=== PATIENT | female | born 1990 | race Caucasian/White ===

== ENCOUNTER 2024-12-22 15:49 | Observation (INO) ==
--- NOTE | 2024-12-22 16:36 | XRay Report ---
Clinical History: Chest pain Technique: A frontal view of the chest was obtained Findings: There is a small right pneumothorax versus a prominent emphysematous bulla. The heart size is within normal limits. No pleural effusion or left pneumothorax is seen. There is diffuse interstitial prominence No fracture is noted. No foreign body is seen Impression: 1. Possible right pneumothorax, versus an emphysematous bulla. Chest CT could be obtained for further evaluation 2. Diffuse interstitial prominence that may be due to viral pneumonitis ACT 112: Positive. There are findings on this exam that require communication between the performing entity and the patient following Patient Test Result Information Act ([place] ACT 112) guidelines. Electronically signed by Lucien Ann 12-22-2024 4:35 PM
[2024-12-22 16:50] LABS: Hematocrit (blood only) 40.5 % (37.0-47.0); Hemoglobin 14.3 g/dl (12.0-16.0); Immature Granulocytes # (auto) 0.01 K/uL (0.01-0.20); Immature Granulocytes % (auto) 0.1 %; Mean Corpuscular Hemoglobin 29.5 pg (25.0-34.0); Mean Corpuscular Volume 83.7 fL (80.0-100.0); Platelet Count 242 K/uL (130-400); RDW Standard Deviation 39.2 fL (36.4-46.3); Red Blood Count 4.84 M/uL (4.20-5.40); White Blood Count 7.14 K/ul (4.8-10.8)
--- NOTE | 2024-12-22 17:08 | Emergency Department Note ---
Impression & Plan Pneumothorax, Emphysema, interstitial ED Provider Note NAME: DARNELL GRANADO AGE: 34 SEX: F : 1990 ARRIVES VIA: Walk-In INFORMANT: Patient, ED PROVIDER(S): Afua Moraes MD CHIEF COMPLAINT: Chest pain HPI: This is a 34-year-old female presenting for chest pain. Patient states that she has had chest pain starting around 1030. She is notices right-sided in the chest. Goes into the right shoulder blade. She has felt short of breath on this time. She took ibuprofen which relieved her symptoms. She noted that it had increased again later in the day. She reports never having symptoms like this before. No pleurisy with this. No arm pain. ROS: See above HPI for pertinent positives & negatives. A total of 10 systems reviewed and were otherwise negative. PAST MEDICAL HISTORY: See Below PAST SURGICAL HISTORY: See Below FAMILY HISTORY: See Below SOCIAL HISTORY: See Below HOME MEDICATIONS: See Below ALLERGIES: See Below VITALS: See Below PHYSICAL EXAMINATION: General: resting comfortably in no acute distress Head: Normocephalic and atraumatic Eyes: Normal inspection, extraocular muscles intact Ear, nose, throat: Normal external exam Neck: Normal range of motion Respiratory: lungs clear to auscultation bilaterally Cardiovascular: Regular rate/rhythm, no murmur GI: soft, nontender, no guarding or rebound Extremities: nontender, moves all extremities Neuro: The patient awake and alert, appropriately conversive, no focal deficits, symmetric faces Skin: Warm, dry, and intact MEDICAL DECISION MAKING: This is a 34-year-old female sen presenting for chest pain. Will get screening workup that includes chest x-ray, basic blood work, troponin, EKG - ECG independently interpreted by me with normal sinus rhythm, rate of 98, normal axis, normal [place], normal QRS, normal QTc, no ST segment elevations consistent with STEMI criteria - Bloodwork is reviewed showing no significant leukocytosis, anemia, electrolyte or creatinine abnormality.negative troponin - Chest x-ray read by radiology as possible right pneumothorax versus emphysematous bullae - CT chest ordered to help elucidate. This reveals a moderate right pneumothorax with severe emphysema/interstitial lung disease -Discussed with Dr. West, recommend small bore chest tube such as pigtail -Patient consented for pigtail catheter placement of the right. Patient made aware of risks and benefits - Patient given Ativan for anxiety, ketamine for pain control 0.3 mg/kg(total 30 mg), and 100 mg of fentanyl throughout procedure - Pigtail chest tube procedure note Indication: Pneumothorax PROCEDURE SUMMARY: A time out was performed and after the chest x-ray was reviewed, the appropriate side was confirmed and marked. My hands were washed immediately prior to the procedure. I wore a surgical cap, mask with protective eyewear, sterile gown and sterile gloves throughout the procedure. The patient was prepped and draped in a sterile manner using chlorhexidine scrub after the patient was positioned in the usual fashion. A total of 4 ml of 1% lidocaine was used to anesthesize the skin, subcutaneous tissue, superior aspect of the rib periosteum and parietal pleura. Needle was inserted with return of air upon entering chest cavity. Guidewire inserted chest cavity. Patient states slight neck apply to skin. Dilator then used to dilate tract. Pigtail catheter with stylette placed. Stylette removed. Pigtail sutured in place and tape applied. Patient tolerated procedure well. Minimal blood loss. Postprocedure chest x- ray reveals improved pneumothorax Differential diagnosis: ACS, PE, pneumothorax, pneumonia Independent History obtained from: Diagnostics interpreted by me: ECG: See above Cardiac Monitoring: An order was placed for continuous cardiac monitoring. The monitor shows a rate of 95 with sinus rhythm. Critical Care Note: I have personally spent 35 minutes of critical care time in the direct management of this patient. This includes bedside care, interpretation of diagnostic studies, and testing, discussion with consultants, patient, and family members, and other required patient management activities. This 35 minutes is in excess of all separately billable procedures. Past Med/Surg History Problem List (Updated 12/23/24 @ 00:03 by Afua Moraes MD) Emphysema, interstitial (Acute) Pneumothorax (Acute) Depression Anxiety (Acute) Chest pain (Acute) Dental caries (Acute) Diffuse abdominal pain (Acute) Knee pain (Acute) Left flank pain (Acute) Lumbar strain (Acute) Renal colic (Acute) Right knee injury (Acute) Vomiting (Acute) Social History Smoking Status: Current every day smoker Tobacco Type: Cigarettes Cigarettes Per Day: 20; Second Hand Exposure: No; Do You Dip or Chew Tobacco: No; Tobacco Cessation Education Requested by Patient: No Hx Alcohol Use: No Hx Substance Use: Yes Last Used Substance: Unknown Preferred Language: Uzbek Communication Ability: Effective Box Repairer Required: No Beliefs That Will Affect Care: None Current Living Situation: Family Current Living Situation Comment: lives at home with daughter and Other Information That Helps Us Care for You: No Feels Safe at Home: Yes Safety Concerns: Feels Safe At This Time Assistive Devices: None Allergies Allergies Allergy/AdvReac Type Severity Reaction Status Date / Time No Known Allergies Allergy Unverified 10/05/15 12:41 Home Meds Home Medications Medication Instructions Recorded Confirmed buprenorphine 8 mg-naloxone 2 mg 1 tab sublingual BID 12/22/24 12/22/24 sublingual tablet ibuprofen 0 mg PO UD PRN Pain 12/22/24 12/22/24 naloxone 4 mg/actuation nasal spray 1 spray intranasal UD PRN Other 12/22/24 12/22/24 Results & Data (ED) Vital Signs Vital Signs - 24 hr 12/22/24 15:54 12/22/24 16:01 12/22/24 16:44 Temperature 36.7 C Temperature Source Temporal Artery Scan Pulse Rate 93 H 89 Pulse Rate [Finger] Pulse Rate from SpO2 Sensor Pulse Rhythm [Finger] Pulse Strength [Finger] Respiratory Rate 16 Respiratory Effort / Characteristics Non-Labored Spontaneous Respiratory Depth Normal Respiratory Pattern Blood Pressure 162/94 H Blood Pressure [Right Arm] Blood Pressure Mean 116 Blood Pressure Mean [Right Arm] Blood Pressure Position [Right Arm] Pulse Oximetry 96 98 Oxygen Delivery Method Room Air Room Air Oxygen Flow Rate Sepsis Recent Fever Within 48 Hours No Sepsis New/Unexplained Change in Mental Status No Sepsis Action Taken by Nursing No Action Required 12/22/24 17:00 12/22/24 17:30 12/22/24 18:00 Temperature Temperature Source Pulse Rate 92 H 82 92 H Pulse Rate [Finger] Pulse Rate from SpO2 Sensor 92 H 80 93 H Pulse Rhythm [Finger] Pulse Strength [Finger] Respiratory Rate 18 16 15 Respiratory Effort / Characteristics Respiratory Depth Respiratory Pattern Blood Pressure 113/68 109/76 118/75 Blood Pressure [Right Arm] Blood Pressure Mean 89 96 87 Blood Pressure Mean [Right Arm] Blood Pressure Position [Right Arm] Pulse Oximetry 96 96 95 Oxygen Delivery Method Room Air Room Air Room Air Oxygen Flow Rate Sepsis Recent Fever Within 48 Hours Sepsis New/Unexplained Change in Mental Status Sepsis Action Taken by Nursing 12/22/24 18:51 12/22/24 18:51 12/22/24 18:51 Temperature Temperature Source Pulse Rate Pulse Rate [Finger] Pulse Rate from SpO2 Sensor Pulse Rhythm [Finger] Pulse Strength [Finger] Respiratory Rate Respiratory Effort / Characteristics Respiratory Depth Respiratory Pattern Blood Pressure 154/101 H 154/101 H 154/101 H Blood Pressure [Right Arm] Blood Pressure Mean 107 107 107 Blood Pressure Mean [Right Arm] Blood Pressure Position [Right Arm] Pulse Oximetry Oxygen Delivery Method Oxygen Flow Rate Sepsis Recent Fever Within 48 Hours Sepsis New/Unexplained Change in Mental Status Sepsis Action Taken by Nursing 12/22/24 18:51 12/22/24 18:51 12/22/24 19:00 Temperature Temperature Source Pulse Rate 108 H 101 H Pulse Rate [Finger] Pulse Rate from SpO2 Sensor 108 H 101 H Pulse Rhythm [Finger] Pulse Strength [Finger] Respiratory Rate 21 19 Respiratory Effort / Characteristics Respiratory Depth Respiratory Pattern Blood Pressure 154/101 H Blood Pressure [Right Arm] Blood Pressure Mean 107 Blood Pressure Mean [Right Arm] Blood Pressure Position [Right Arm] Pulse Oximetry 97 99 Oxygen Delivery Method Oxygen Flow Rate Sepsis Recent Fever Within 48 Hours Sepsis New/Unexplained Change in Mental Status Sepsis Action Taken by Nursing 12/22/24 19:00 12/22/24 19:00 12/22/24 19:00 Temperature Temperature Source Pulse Rate Pulse Rate [Finger] Pulse Rate from SpO2 Sensor Pulse Rhythm [Finger] Pulse Strength [Finger] Respiratory Rate Respiratory Effort / Characteristics Respiratory Depth Respiratory Pattern Blood Pressure 139/89 139/89 139/89 Blood Pressure [Right Arm] Blood Pressure Mean 101 101 101 Blood Pressure Mean [Right Arm] Blood Pressure Position [Right Arm] Pulse Oximetry Oxygen Delivery Method Oxygen Flow Rate Sepsis Recent Fever Within 48 Hours Sepsis New/Unexplained Change in Mental Status Sepsis Action Taken by Nursing 12/22/24 19:00 12/22/24 19:00 12/22/24 19:12 Temperature Temperature Source Pulse Rate Pulse Rate [Finger] 113 H Pulse Rate from SpO2 Sensor Pulse Rhythm [Finger] Pulse Strength [Finger] Respiratory Rate 26 H Respiratory Effort / Characteristics Respiratory Depth Respiratory Pattern Blood Pressure 139/89 139/89 Blood Pressure [Right Arm] 161/99 H Blood Pressure Mean 101 101 Blood Pressure Mean [Right Arm] 119 Blood Pressure Position [Right Arm] Pulse Oximetry 92 Oxygen Delivery Method Room Air Oxygen Flow Rate Sepsis Recent Fever Within 48 Hours Sepsis New/Unexplained Change in Mental Status Sepsis Action Taken by Nursing 12/22/24 19:12 12/22/24 19:12 12/22/24 19:12 Temperature Temperature Source Pulse Rate Pulse Rate [Finger] Pulse Rate from SpO2 Sensor Pulse Rhythm [Finger] Pulse Strength [Finger] Respiratory Rate Respiratory Effort / Characteristics Respiratory Depth Respiratory Pattern Blood Pressure 161/99 H 161/99 H 161/99 H Blood Pressure [Right Arm] Blood Pressure Mean 118 118 118 Blood Pressure Mean [Right Arm] Blood Pressure Position [Right Arm] Pulse Oximetry Oxygen Delivery Method Oxygen Flow Rate Sepsis Recent Fever Within 48 Hours Sepsis New/Unexplained Change in Mental Status Sepsis Action Taken by Nursing 12/22/24 19:12 12/22/24 19:12 12/22/24 19:12 Temperature Temperature Source Pulse Rate 106 H Pulse Rate [Finger] Pulse Rate from SpO2 Sensor 105 H Pulse Rhythm [Finger] Pulse Strength [Finger] Respiratory Rate 17 Respiratory Effort / Characteristics Respiratory Depth Respiratory Pattern Blood Pressure 161/99 H 161/99 H Blood Pressure [Right Arm] Blood Pressure Mean 118 118 Blood Pressure Mean [Right Arm] Blood Pressure Position [Right Arm] Pulse Oximetry 96 Oxygen Delivery Method Oxygen Flow Rate Sepsis Recent Fever Within 48 Hours Sepsis New/Unexplained Change in Mental Status Sepsis Action Taken by Nursing 12/22/24 19:21 12/22/24 19:30 12/22/24 19:30 Temperature Temperature Source Pulse Rate 97 H Pulse Rate [Finger] Pulse Rate from SpO2 Sensor 98 H Pulse Rhythm [Finger] Pulse Strength [Finger] Respiratory Rate 17 Respiratory Effort / Characteristics Respiratory Depth Respiratory Pattern Blood Pressure 148/118 H 148/118 H Blood Pressure [Right Arm] Blood Pressure Mean 133 133 Blood Pressure Mean [Right Arm] Blood Pressure Position [Right Arm] Pulse Oximetry 98 Oxygen Delivery Method Oxygen Flow Rate Sepsis Recent Fever Within 48 Hours Sepsis New/Unexplained Change in Mental Status Sepsis Action Taken by Nursing 12/22/24 19:30 12/22/24 19:30 12/22/24 19:30 Temperature Temperature Source Pulse Rate Pulse Rate [Finger] Pulse Rate from SpO2 Sensor Pulse Rhythm [Finger] Pulse Strength [Finger] Respiratory Rate Respiratory Effort / Characteristics Respiratory Depth Respiratory Pattern Blood Pressure 148/118 H 148/118 H 148/118 H Blood Pressure [Right Arm] Blood Pressure Mean 133 133 133 Blood Pressure Mean [Right Arm] Blood Pressure Position [Right Arm] Pulse Oximetry Oxygen Delivery Method Oxygen Flow Rate Sepsis Recent Fever Within 48 Hours Sepsis New/Unexplained Change in Mental Status Sepsis Action Taken by Nursing 12/22/24 19:30 12/22/24 19:42 12/22/24 19:45 Temperature Temperature Source Pulse Rate 104 H 120 H Pulse Rate [Finger] Pulse Rate from SpO2 Sensor Pulse Rhythm [Finger] Pulse Strength [Finger] Respiratory Rate Respiratory Effort / Characteristics Respiratory Depth Respiratory Pattern Blood Pressure 172/139 H Blood Pressure [Right Arm] Blood Pressure Mean 159 Blood Pressure Mean [Right Arm] Blood Pressure Position [Right Arm] Pulse Oximetry Oxygen Delivery Method Oxygen Flow Rate Sepsis Recent Fever Within 48 Hours Sepsis New/Unexplained Change in Mental Status Sepsis Action Taken by Nursing 12/22/24 19:45 12/22/24 19:45 12/22/24 19:45 Temperature Temperature Source Pulse Rate Pulse Rate [Finger] Pulse Rate from SpO2 Sensor Pulse Rhythm [Finger] Pulse Strength [Finger] Respiratory Rate Respiratory Effort / Characteristics Respiratory Depth Respiratory Pattern Blood Pressure 172/139 H 172/139 H 172/139 H Blood Pressure [Right Arm] Blood Pressure Mean 159 159 159 Blood Pressure Mean [Right Arm] Blood Pressure Position [Right Arm] Pulse Oximetry Oxygen Delivery Method Oxygen Flow Rate Sepsis Recent Fever Within 48 Hours Sepsis New/Unexplained Change in Mental Status Sepsis Action Taken by Nursing 12/22/24 19:45 12/22/24 19:45 12/22/24 19:51 Temperature Temperature Source Pulse Rate 125 H 99 H Pulse Rate [Finger] Pulse Rate from SpO2 Sensor 100 H Pulse Rhythm [Finger] Pulse Strength [Finger] Respiratory Rate Respiratory Effort / Characteristics Respiratory Depth Respiratory Pattern Blood Pressure 172/139 H Blood Pressure [Right Arm] Blood Pressure Mean 159 Blood Pressure Mean [Right Arm] Blood Pressure Position [Right Arm] Pulse Oximetry 100 Oxygen Delivery Method Oxygen Flow Rate Sepsis Recent Fever Within 48 Hours Sepsis New/Unexplained Change in Mental Status Sepsis Action Taken by Nursing 12/22/24 20:00 12/22/24 20:00 12/22/24 20:00 Temperature Temperature Source Pulse Rate 98 H Pulse Rate [Finger] 103 H Pulse Rate from SpO2 Sensor 100 H Pulse Rhythm [Finger] Pulse Strength [Finger] Respiratory Rate 20 Respiratory Effort / Characteristics Non-Labored Spontaneous Respiratory Depth Normal Respiratory Pattern Regular Blood Pressure 157/91 H Blood Pressure [Right Arm] 157/91 H Blood Pressure Mean 104 Blood Pressure Mean [Right Arm] 113 Blood Pressure Position [Right Arm] Pulse Oximetry 100 100 Oxygen Delivery Method Non-rebreather Oxygen Flow Rate 15 Sepsis Recent Fever Within 48 Hours Sepsis New/Unexplained Change in Mental Status Sepsis Action Taken by Nursing 12/22/24 20:00 12/22/24 20:00 12/22/24 20:00 Temperature Temperature Source Pulse Rate Pulse Rate [Finger] Pulse Rate from SpO2 Sensor Pulse Rhythm [Finger] Pulse Strength [Finger] Respiratory Rate 18 Respiratory Effort / Characteristics Respiratory Depth Respiratory Pattern Blood Pressure 157/91 H 157/91 H 157/91 H Blood Pressure [Right Arm] Blood Pressure Mean 104 104 104 Blood Pressure Mean [Right Arm] Blood Pressure Position [Right Arm] Pulse Oximetry Oxygen Delivery Method Oxygen Flow Rate Sepsis Recent Fever Within 48 Hours Sepsis New/Unexplained Change in Mental Status Sepsis Action Taken by Nursing 12/22/24 20:00 12/22/24 20:12 12/22/24 20:15 Temperature Temperature Source Pulse Rate 107 H Pulse Rate [Finger] Pulse Rate from SpO2 Sensor 105 H Pulse Rhythm [Finger] Pulse Strength [Finger] Respiratory Rate Respiratory Effort / Characteristics Respiratory Depth Respiratory Pattern Blood Pressure 157/91 H 144/96 H Blood Pressure [Right Arm] Blood Pressure Mean 104 110 Blood Pressure Mean [Right Arm] Blood Pressure Position [Right Arm] Pulse Oximetry 100 Oxygen Delivery Method Oxygen Flow Rate Sepsis Recent Fever Within 48 Hours Sepsis New/Unexplained Change in Mental Status Sepsis Action Taken by Nursing 12/22/24 20:15 12/22/24 20:15 12/22/24 20:15 Temperature Temperature Source Pulse Rate Pulse Rate [Finger] Pulse Rate from SpO2 Sensor Pulse Rhythm [Finger] Pulse Strength [Finger] Respiratory Rate Respiratory Effort / Characteristics Respiratory Depth Respiratory Pattern Blood Pressure 144/96 H 144/96 H 144/96 H Blood Pressure [Right Arm] Blood Pressure Mean 110 110 110 Blood Pressure Mean [Right Arm] Blood Pressure Position [Right Arm] Pulse Oximetry Oxygen Delivery Method Oxygen Flow Rate Sepsis Recent Fever Within 48 Hours Sepsis New/Unexplained Change in Mental Status Sepsis Action Taken by Nursing 12/22/24 20:15 12/22/24 20:15 12/22/24 20:21 Temperature Temperature Source Pulse Rate 100 H 115 H Pulse Rate [Finger] Pulse Rate from SpO2 Sensor 99 H 112 H Pulse Rhythm [Finger] Pulse Strength [Finger] Respiratory Rate Respiratory Effort / Characteristics Respiratory Depth Respiratory Pattern Blood Pressure 144/96 H Blood Pressure [Right Arm] Blood Pressure Mean 110 Blood Pressure Mean [Right Arm] Blood Pressure Position [Right Arm] Pulse Oximetry 100 100 Oxygen Delivery Method Non-rebreather Oxygen Flow Rate 15 Sepsis Recent Fever Within 48 Hours Sepsis New/Unexplained Change in Mental Status Sepsis Action Taken by Nursing 12/22/24 20:30 12/22/24 20:30 12/22/24 20:30 Temperature Temperature Source Pulse Rate Pulse Rate [Finger] Pulse Rate from SpO2 Sensor Pulse Rhythm [Finger] Pulse Strength [Finger] Respiratory Rate Respiratory Effort / Characteristics Respiratory Depth Respiratory Pattern Blood Pressure 174/103 H 174/103 H 174/103 H Blood Pressure [Right Arm] Blood Pressure Mean 120 120 120 Blood Pressure Mean [Right Arm] Blood Pressure Position [Right Arm] Pulse Oximetry Oxygen Delivery Method Oxygen Flow Rate Sepsis Recent Fever Within 48 Hours Sepsis New/Unexplained Change in Mental Status Sepsis Action Taken by Nursing 12/22/24 20:30 12/22/24 20:30 12/22/24 20:30 Temperature Temperature Source Pulse Rate 117 H Pulse Rate [Finger] Pulse Rate from SpO2 Sensor 119 H Pulse Rhythm [Finger] Pulse Strength [Finger] Respiratory Rate Respiratory Effort / Characteristics Respiratory Depth Respiratory Pattern Blood Pressure 174/103 H 174/103 H Blood Pressure [Right Arm] Blood Pressure Mean 120 120 Blood Pressure Mean [Right Arm] Blood Pressure Position [Right Arm] Pulse Oximetry 100 Oxygen Delivery Method Oxygen Flow Rate Sepsis Recent Fever Within 48 Hours Sepsis New/Unexplained Change in Mental Status Sepsis Action Taken by Nursing 12/22/24 20:30 12/22/24 20:30 12/22/24 20:42 Temperature Temperature Source Pulse Rate 108 H Pulse Rate [Finger] Pulse Rate from SpO2 Sensor 109 H Pulse Rhythm [Finger] Pulse Strength [Finger] Respiratory Rate Respiratory Effort / Characteristics Respiratory Depth Respiratory Pattern Blood Pressure 174/103 H 174/103 H Blood Pressure [Right Arm] Blood Pressure Mean 120 120 Blood Pressure Mean [Right Arm] Blood Pressure Position [Right Arm] Pulse Oximetry 100 Oxygen Delivery Method Oxygen Flow Rate Sepsis Recent Fever Within 48 Hours Sepsis New/Unexplained Change in Mental Status Sepsis Action Taken by Nursing 12/22/24 20:45 12/22/24 20:45 12/22/24 20:45 Temperature Temperature Source Pulse Rate Pulse Rate [Finger] Pulse Rate from SpO2 Sensor Pulse Rhythm [Finger] Pulse Strength [Finger] Respiratory Rate Respiratory Effort / Characteristics Respiratory Depth Respiratory Pattern Blood Pressure 159/94 H 159/94 H 159/94 H Blood Pressure [Right Arm] Blood Pressure Mean 122 122 122 Blood Pressure Mean [Right Arm] Blood Pressure Position [Right Arm] Pulse Oximetry Oxygen Delivery Method Oxygen Flow Rate Sepsis Recent Fever Within 48 Hours Sepsis New/Unexplained Change in Mental Status Sepsis Action Taken by Nursing 12/22/24 20:45 12/22/24 20:45 12/22/24 20:45 Temperature Temperature Source Pulse Rate 108 H Pulse Rate [Finger] Pulse Rate from SpO2 Sensor 106 H Pulse Rhythm [Finger] Pulse Strength [Finger] Respiratory Rate Respiratory Effort / Characteristics Respiratory Depth Respiratory Pattern Blood Pressure 159/94 H 159/94 H Blood Pressure [Right Arm] Blood Pressure Mean 122 122 Blood Pressure Mean [Right Arm] Blood Pressure Position [Right Arm] Pulse Oximetry 100 Oxygen Delivery Method Oxygen Flow Rate Sepsis Recent Fever Within 48 Hours Sepsis New/Unexplained Change in Mental Status Sepsis Action Taken by Nursing 12/22/24 20:51 12/22/24 21:00 12/22/24 21:00 Temperature Temperature Source Pulse Rate 102 H Pulse Rate [Finger] Pulse Rate from SpO2 Sensor 103 H Pulse Rhythm [Finger] Pulse Strength [Finger] Respiratory Rate Respiratory Effort / Characteristics Respiratory Depth Respiratory Pattern Blood Pressure 160/98 H 160/98 H Blood Pressure [Right Arm] Blood Pressure Mean 119 119 Blood Pressure Mean [Right Arm] Blood Pressure Position [Right Arm] Pulse Oximetry 100 Oxygen Delivery Method Oxygen Flow Rate Sepsis Recent Fever Within 48 Hours Sepsis New/Unexplained Change in Mental Status Sepsis Action Taken by Nursing 12/22/24 21:00 12/22/24 21:00 12/22/24 21:00 Temperature Temperature Source Pulse Rate 110 H Pulse Rate [Finger] Pulse Rate from SpO2 Sensor 110 H Pulse Rhythm [Finger] Pulse Strength [Finger] Respiratory Rate 18 Respiratory Effort / Characteristics Respiratory Depth Respiratory Pattern Blood Pressure 160/98 H 160/98 H Blood Pressure [Right Arm] Blood Pressure Mean 119 119 Blood Pressure Mean [Right Arm] Blood Pressure Position [Right Arm] Pulse Oximetry 95 Oxygen Delivery Method Oxygen Flow Rate Sepsis Recent Fever Within 48 Hours Sepsis New/Unexplained Change in Mental Status Sepsis Action Taken by Nursing 12/22/24 21:00 12/22/24 21:00 12/22/24 21:00 Temperature Temperature Source Pulse Rate Pulse Rate [Finger] Pulse Rate from SpO2 Sensor Pulse Rhythm [Finger] Pulse Strength [Finger] Respiratory Rate Respiratory Effort / Characteristics Respiratory Depth Respiratory Pattern Blood Pressure 160/98 H 160/98 H 160/98 H Blood Pressure [Right Arm] Blood Pressure Mean 119 119 119 Blood Pressure Mean [Right Arm] Blood Pressure Position [Right Arm] Pulse Oximetry Oxygen Delivery Method Oxygen Flow Rate Sepsis Recent Fever Within 48 Hours Sepsis New/Unexplained Change in Mental Status Sepsis Action Taken by Nursing 12/22/24 21:05 12/22/24 21:12 12/22/24 21:15 Temperature Temperature Source Pulse Rate 103 H Pulse Rate [Finger] 105 H Pulse Rate from SpO2 Sensor 104 H Pulse Rhythm [Finger] Regular Pulse Strength [Finger] Normal Respiratory Rate 17 Respiratory Effort / Characteristics Non-Labored Spontaneous Respiratory Depth Normal Respiratory Pattern Regular Blood Pressure 119/77 Blood Pressure [Right Arm] 160/98 H Blood Pressure Mean 89 Blood Pressure Mean [Right Arm] 118 Blood Pressure Position [Right Arm] Lying Pulse Oximetry 96 94 Oxygen Delivery Method Nasal Cannula Oxygen Flow Rate 3 Sepsis Recent Fever Within 48 Hours Sepsis New/Unexplained Change in Mental Status Sepsis Action Taken by Nursing 12/22/24 21:15 12/22/24 21:15 12/22/24 21:15 Temperature Temperature Source Pulse Rate Pulse Rate [Finger] Pulse Rate from SpO2 Sensor Pulse Rhythm [Finger] Pulse Strength [Finger] Respiratory Rate Respiratory Effort / Characteristics Respiratory Depth Respiratory Pattern Blood Pressure 119/77 119/77 119/77 Blood Pressure [Right Arm] Blood Pressure Mean 89 89 89 Blood Pressure Mean [Right Arm] Blood Pressure Position [Right Arm] Pulse Oximetry Oxygen Delivery Method Oxygen Flow Rate Sepsis Recent Fever Within 48 Hours Sepsis New/Unexplained Change in Mental Status Sepsis Action Taken by Nursing 12/22/24 21:15 12/22/24 21:15 12/22/24 21:21 Temperature Temperature Source Pulse Rate 102 H 104 H Pulse Rate [Finger] Pulse Rate from SpO2 Sensor 104 H 105 H Pulse Rhythm [Finger] Pulse Strength [Finger] Respiratory Rate Respiratory Effort / Characteristics Respiratory Depth Respiratory Pattern Blood Pressure 119/77 Blood Pressure [Right Arm] Blood Pressure Mean 89 Blood Pressure Mean [Right Arm] Blood Pressure Position [Right Arm] Pulse Oximetry 94 94 Oxygen Delivery Method Oxygen Flow Rate Sepsis Recent Fever Within 48 Hours Sepsis New/Unexplained Change in Mental Status Sepsis Action Taken by Nursing 12/22/24 21:27 12/22/24 21:28 12/22/24 21:28 Temperature Temperature Source Pulse Rate 94 H Pulse Rate [Finger] Pulse Rate from SpO2 Sensor 96 H Pulse Rhythm [Finger] Pulse Strength [Finger] Respiratory Rate 16 Respiratory Effort / Characteristics Respiratory Depth Respiratory Pattern Blood Pressure 131/84 131/84 Blood Pressure [Right Arm] Blood Pressure Mean 101 101 Blood Pressure Mean [Right Arm] Blood Pressure Position [Right Arm] Pulse Oximetry 95 Oxygen Delivery Method Oxygen Flow Rate Sepsis Recent Fever Within 48 Hours Sepsis New/Unexplained Change in Mental Status Sepsis Action Taken by Nursing 12/22/24 21:30 12/22/24 21:30 12/22/24 21:30 Temperature Temperature Source Pulse Rate Pulse Rate [Finger] Pulse Rate from SpO2 Sensor Pulse Rhythm [Finger] Pulse Strength [Finger] Respiratory Rate Respiratory Effort / Characteristics Respiratory Depth Respiratory Pattern Blood Pressure 147/82 H 147/82 H 147/82 H Blood Pressure [Right Arm] Blood Pressure Mean 97 97 97 Blood Pressure Mean [Right Arm] Blood Pressure Position [Right Arm] Pulse Oximetry Oxygen Delivery Method Oxygen Flow Rate Sepsis Recent Fever Within 48 Hours Sepsis New/Unexplained Change in Mental Status Sepsis Action Taken by Nursing 12/22/24 21:30 12/22/24 21:30 12/22/24 21:30 Temperature Temperature Source Pulse Rate 103 H Pulse Rate [Finger] Pulse Rate from SpO2 Sensor 103 H Pulse Rhythm [Finger] Pulse Strength [Finger] Respiratory Rate 17 Respiratory Effort / Characteristics Respiratory Depth Respiratory Pattern Blood Pressure 147/82 H 147/82 H Blood Pressure [Right Arm] Blood Pressure Mean 97 97 Blood Pressure Mean [Right Arm] Blood Pressure Position [Right Arm] Pulse Oximetry 94 Oxygen Delivery Method Oxygen Flow Rate Sepsis Recent Fever Within 48 Hours Sepsis New/Unexplained Change in Mental Status Sepsis Action Taken by Nursing 12/22/24 21:42 Temperature Temperature Source Pulse Rate 99 H Pulse Rate [Finger] Pulse Rate from SpO2 Sensor 99 H Pulse Rhythm [Finger] Pulse Strength [Finger] Respiratory Rate 15 Respiratory Effort / Characteristics Respiratory Depth Respiratory Pattern Blood Pressure Blood Pressure [Right Arm] Blood Pressure Mean Blood Pressure Mean [Right Arm] Blood Pressure Position [Right Arm] Pulse Oximetry 94 Oxygen Delivery Method Oxygen Flow Rate Sepsis Recent Fever Within 48 Hours Sepsis New/Unexplained Change in Mental Status Sepsis Action Taken by Nursing Laboratory Data 12/22/24 16:16 12/22/24 16:16 Lab Results 12/22/24 Range/Units 16:16 WBC 7.14 (4.8-10.8) K/ul RBC 4.84 (4.20-5.40) M/uL Hgb 14.3 (12.0-16.0) g/dl Hct 40.5 (37.0-47.0) % MCV 83.7 (80.0-100.0) fL MCH 29.5 (25.0-34.0) pg MCHC 35.3 (32.0-36.0) g/dL RDW Std Deviation 39.2 (36.4-46.3) fL RDW Coeff of Angela 13.0 (11.5-14.5) % Plt Count 242 (130-400) K/uL MPV 10.4 (9.4-12.4) fL Immature Gran % (Auto) 0.1 % Neut % (Auto) 61.4 % Lymph % (Auto) 28.7 % [place] % (Auto) 7.1 % Eos % (Auto) 2.0 % Baso % (Auto) 0.7 % Neut # (Auto) 4.38 (1.40-6.50) K/uL Lymph # (Auto) 2.05 (1.20-3.40) K/uL [place] # (Auto) 0.51 (0.11-0.59) K/uL Eos # (Auto) 0.14 (0.00-0.50) K/uL Baso # (Auto) 0.05 (0.00-0.20) K/uL Immature Gran # (Auto) 0.01 (0.01-0.20) K/uL Sodium 136 (136-145) mmol/L Potassium 3.5 (3.5-5.1) mmol/L Chloride 105 (98-107) mmol/L Carbon Dioxide 23 (21-32) mmol/L Anion Gap 8 (3-11) BUN 10 (6-23) mg/dl Creatinine 0.59 L (0.6-1.2) mg/dl Est Cr Clr Drug Dosing 166.7 ml/min eGFR 120.46 BUN/Creatinine Ratio 16.9 (10-20) Glucose 99 (70-99(Fasting)) mg/dl Calcium 8.9 (8.6-10.3) mg/dl Total Bilirubin 0.2 (0.2-1.0) mg/dl AST 15 (13-39) U/L ALT 15 (7-52) U/L Alkaline Phosphatase 75 (34-104) U/L Troponin I High Sens < 2.3 (0-14) pg/ml Total Protein 7.7 (6.0-8.3) gm/dl Albumin 3.9 (3.4-5.0) gm/dl Globulin 3.8 (2.5-4.0) gm/dl Albumin/Globulin Ratio 1.0 (0.9-2) Lipase 15 (11-82) U/L Administered Medications Enoxaparin Sodium (Enoxaparin Inj 40 Mg/0.4 Ml Syr) 40 mg SQ Q24H ANGELICA Stop: 01/21/25 20:59 Last Admin: 12/22/24 23:33 Dose: 40 mg Documented By: SLOANE Discontinued Medications Fentanyl Citrate (Fentanyl Citrate Pf 100 Mcg/2 Ml Vial) Confirm Administered Dose 100 mcg .ROUTE .STK-MED ONE Stop: 12/22/24 20:31 Last Admin: 12/22/24 20:32 Dose: 100 mcg Documented By: HOANG Hydromorphone HCl (Hydromorphone Inj 0.5 Mg/0.5 Ml Syr) 0.5 mg IV NOW STA Stop: 12/22/24 23:06 Last Admin: 12/22/24 23:11 Dose: 0.5 mg Documented By: SLOANE Ioversol (Optiray 320 100ml) 95 ml IV ONCE ONE Stop: 12/22/24 17:48 Last Admin: 12/22/24 17:47 Dose: 95 ml Documented By: PRISCILLA Ketamine HCl (Ketamine Hcl Inj 50 Mg/Ml 10 Ml Vial) Confirm Administered Dose 50 mg .ROUTE .STK-MED ONE Stop: 12/22/24 19:30 Last Admin: 12/22/24 19:58 Dose: Not Given Documented By: HOANG Ketamine HCl (Ketamine Hcl 10mg/Ml Syr) 30 mg IV NOW STA Stop: 12/22/24 19:49 Last Admin: 12/22/24 20:23 Dose: 30 mg Documented By: RAISSA Lorazepam (Lorazepam 1 Mg/1 Ml Syr Ed Inj Use) 1 mg IV ONE STA Stop: 12/22/24 19:49 Last Admin: 12/22/24 19:57 Dose: 1 mg Documented By: frandy Imaging Data Radiologist's Impression: Chest X-Ray 12/22/24 00:00 Exam(s): XR CXR 1 VIEW EXAM: XR Chest, 1 View CLINICAL HISTORY: TUBE PLACEMENT. TECHNIQUE: Frontal view of the chest. COMPARISON: 1619 hours FINDINGS: Lungs: Underlying bullous disease in the right upper lung zone. Apparent diffuse reticulonodular interstitial changes is greater than expected for the patient's age. Pleural space: There is partial re-expansion of the right pneumothorax. Only trace remains along the medial aspect of the right lung apex. No pleural effusion. No left-sided pneumothorax. Heart: Unremarkable. No cardiomegaly. Mediastinum: No significant abnormality identified. The trachea is midline. Bones/joints: Unremarkable. No acute fracture. Tubes, lines and devices: There has been interval placement of a right lateral approach pigtail chest tube. IMPRESSION: 1. There has been interval placement of a right lateral approach pigtail chest tube with partial re-expansion of the right pneumothorax. Only trace remains along the medial aspect of the right lung apex. 2. Underlying bullous disease in the right upper lung zone. Apparent diffuse reticulonodular interstitial changes is greater than expected for the patient's age. Favor underlying interstitial fibrotic changes given the bullous disease in the right upper lobe; underlying interstitial infection is difficult to exclude given this appearance. Electronically signed by: Jean Carlos Last MD 12/22/24 21:47 PM Chest X-Ray 12/22/24 16:01 Clinical History: Chest pain Technique: A frontal view of the chest was obtained Findings: There is a small right pneumothorax versus a prominent emphysematous bulla. The heart size is within normal limits. No pleural effusion or left pneumothorax is seen. There is diffuse interstitial prominence No fracture is noted. No foreign body is seen Impression: 1. Possible right pneumothorax, versus an emphysematous bulla. Chest CT could be obtained for further evaluation 2. Diffuse interstitial prominence that may be due to viral pneumonitis ACT 112: Positive. There are findings on this exam that require communication between the performing entity and the patient following Patient Test Result Information Act ([place] ACT 112) guidelines. Electronically signed by Lucien Ann 12-22-2024 4:[address] 12/22/24 16:43 EXAMINATION: Chest CT with CLINICAL HISTORY: Right pneumothorax versus bulla COMPARISON: Radiograph 05/29/2015 TECHNIQUE: Contiguous axial images were obtained through the chest with the use of intravenous contrast. Sagittal and coronal reformations are supplied. FINDINGS: Severe pulmonary emphysema and/or interstitial lung disease noted. A large bulla is present in the right lung apex. There is also a moderate size pneumothorax involving the mid to lower hemithorax, image 41, series 3. No shift or tension of the mediastinum. Biapical pleural-parenchymal scarring and anatomic distortion noted. Multiple paraseptal bulla in the left lung without pneumothorax at this time. No dominant airspace consolidation. Mediastinal and bilateral hilar adenopathy is present. Trachea and mainstem bronchi are patent. Thyroid is normal in size. Heart size within normal limits. No pleural or pericardial effusion. Limited visualization of the upper abdomen shows no acute abnormality. Mild osseous demineralization and moderate kyphosis noted. Heterogeneous lucency present in the L3 vertebral body which should be correlated with prior imaging. No compression fracture. IMPRESSION: 1. Moderate right pneumothorax, also with a right apical bulla and no CT features of tension. The critical findings protocol was activated at 6:05 PM EST on 12/22/2024. 2. Severe pulmonary emphysema and/or interstitial lung disease with mediastinal and hilar adenopathy. Please correlate with clinical history. ACT 112: Positive. There are findings on this examination that require communication between the performing entity and the patient following Patient Test Result Information Act ([place] ACT 112) guidelines. Electronically signed by Radhika Patel 12-22-2024 6:07 PM Discharge Plan Visit Data Chief Complaint: Chest Pain Stated Complaint: CHEST PAIN ED Provider: Afua Moraes Discharge Problem: Pneumothorax, Emphysema, interstitial Patient Disposition: Admitted As Inpatient Condition: Fair Discharge Instructions Interventions: ED Discharge Assessment Last Done: 12/22/24 23:09
[2024-12-22 17:14] LABS: Alanine Aminotransferase 15 U/L (7-52); Albumin Globulin Ratio 1.0 (0.9-2); Albumin Level 3.9 gm/dl (3.4-5.0); Alkaline Phosphatase 75 U/L (34-104); Anion Gap 8 (3-11); Bilirubin,Total 0.2 mg/dl (0.2-1.0); Blood Urea Nitrogen 10 mg/dl (6-23); Calcium 8.9 mg/dl (8.6-10.3); Carbon Dioxide 23 mmol/L (21-32); Chloride 105 mmol/L (98-107); Creatinine Clr Calc Pharmacy 166.7 ml/min; Globulin 3.8 gm/dl (2.5-4.0); Glucose 99 mg/dl (70-99(Fasting)); Lipase 15 U/L (11-82); Potassium 3.5 mmol/L (3.5-5.1); Sodium 136 mmol/L (136-145); Total Protein 7.7 gm/dl (6.0-8.3)
[2024-12-22] MEDS: OPTIRAY 320 100ml IV ONE (17:47)
--- NOTE | 2024-12-22 18:09 | CT Scan Report ---
EXAMINATION: Chest CT with CLINICAL HISTORY: Right pneumothorax versus bulla COMPARISON: Radiograph 05/29/2015 TECHNIQUE: Contiguous axial images were obtained through the chest with the use of intravenous contrast. Sagittal and coronal reformations are supplied. FINDINGS: Severe pulmonary emphysema and/or interstitial lung disease noted. A large bulla is present in the right lung apex. There is also a moderate size pneumothorax involving the mid to lower hemithorax, image 41, series 3. No shift or tension of the mediastinum. Biapical pleural-parenchymal scarring and anatomic distortion noted. Multiple paraseptal bulla in the left lung without pneumothorax at this time. No dominant airspace consolidation. Mediastinal and bilateral hilar adenopathy is present. Trachea and mainstem bronchi are patent. Thyroid is normal in size. Heart size within normal limits. No pleural or pericardial effusion. Limited visualization of the upper abdomen shows no acute abnormality. Mild osseous demineralization and moderate kyphosis noted. Heterogeneous lucency present in the L3 vertebral body which should be correlated with prior imaging. No compression fracture. IMPRESSION: 1. Moderate right pneumothorax, also with a right apical bulla and no CT features of tension. The critical findings protocol was activated at 6:05 PM EST on 12/22/2024. 2. Severe pulmonary emphysema and/or interstitial lung disease with mediastinal and hilar adenopathy. Please correlate with clinical history. ACT 112: Positive. There are findings on this examination that require communication between the performing entity and the patient following Patient Test Result Information Act ([place] ACT 112) guidelines. Electronically signed by Radhika Patel 12-22-2024 6:07 PM
[2024-12-22] MEDS: LORazepam 1 MG/1 ML SYR ED Inj Use IV STA (19:57)
[2024-12-22] MEDS: KETAMINE HCL INJ 50 MG/ML 10 ML VIAL ONE (19:58)
[2024-12-22] MEDS: KETAMINE HCL 10MG/ML SYR IV STA (20:23)
--- NOTE | 2024-12-22 21:48 | XRay Report ---
Exam(s): XR CXR 1 VIEW EXAM: XR Chest, 1 View CLINICAL HISTORY: TUBE PLACEMENT. TECHNIQUE: Frontal view of the chest. COMPARISON: 1619 hours FINDINGS: Lungs: Underlying bullous disease in the right upper lung zone. Apparent diffuse reticulonodular interstitial changes is greater than expected for the patient's age. Pleural space: There is partial re-expansion of the right pneumothorax. Only trace remains along the medial aspect of the right lung apex. No pleural effusion. No left-sided pneumothorax. Heart: Unremarkable. No cardiomegaly. Mediastinum: No significant abnormality identified. The trachea is midline. Bones/joints: Unremarkable. No acute fracture. Tubes, lines and devices: There has been interval placement of a right lateral approach pigtail chest tube. IMPRESSION: 1. There has been interval placement of a right lateral approach pigtail chest tube with partial re-expansion of the right pneumothorax. Only trace remains along the medial aspect of the right lung apex. 2. Underlying bullous disease in the right upper lung zone. Apparent diffuse reticulonodular interstitial changes is greater than expected for the patient's age. Favor underlying interstitial fibrotic changes given the bullous disease in the right upper lobe; underlying interstitial infection is difficult to exclude given this appearance. Electronically signed by: Jean Carlos Last MD 12/22/24 21:47 PM
--- NOTE | 2024-12-22 22:10 | History & Physical Report ---
Date of Service December 22, 2024 Assessment & Plan (1) Pneumothorax: Plan: 34-year-old female with past medical history significant for kidney stones, depression and anxiety presents with chest pain and shortness of breath and found to have a right pneumothorax and status post pigtail chest tube by ER. 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 She took ibuprofen and it seemed to help for some time. But the pain came back severely radiating to the back associated with shortness of breath which prompted her to come to the ER. Currently hemodynamically okay and saturating okay on 3 L. Denies any fevers. Denies any cough. No runny nose or sore throat. No headache. No nausea. No abdominal pain. Normal bowel and bladder movements. Patient states since last 2 to 3 months walking from her home to her workplace which is 4 minutes away she was huffing and puffing. And also climbing steps in her house making her short of breath. Patient also states about couple of weeks ago she inhaled some gases from the refrigerator at workplace and after that she had a cough with blood in the sputum, but it happened only once. Patient states she smokes about a 1 pack of cigarettes daily since last 20 years.Patient is somewhat tearful. Patient states her family lives about 45 minutes away. Pneumothorax Right side s/p pigtail chest tube by ER Also Ct scan showing severe emphysema and and /or ILD with mediastinal and hilar adenopathy will follow cxr in am telemetry Pulmonary consult Tobacco abuse counselling Dvt prophylaxis Lovenox History of Present Illness Chief Complaint: Right pneumothorax Primary Care Provider: Rebecca Morrissey MD 34-year-old female with past medical history significant for kidney stones, depression and anxiety presents with chest pain and shortness of breath and found to have a right pneumothorax and status post pigtail chest tube by ER. 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 She took ibuprofen and it seemed to help for some time. But the pain came back severely radiating to the back associated with shortness of breath which prompted her to come to the ER. Currently hemodynamically okay and saturating okay on 3 L. Denies any fevers. Denies any cough. No runny nose or sore throat. No headache. No nausea. No abdominal pain. Normal bowel and bladder movements. Patient states since last 2 to 3 mo nths walking from her home to her workplace which is 4 minutes away she was huffing and puffing. And also climbing steps in her house making her short of breath. Patient also states about couple of weeks ago she inhaled some gases from the refrigerator at workplace and after that she had a cough with blood in the sputum, but it happened only once. Patient states she smokes about a 1 pack of cigarettes daily since last 20 years.Patient is somewhat tearful. Patient states her family lives about 45 minutes away. Past medical history. As mentioned above. Past surgical history. Cystoscopy/uretero with lithotripsy and right side. Tonsillectomy adenoidectomy. Social history. Smoking 1 pack a day for last 20 years. No alcohol use. No history of drug abuse many years ago. Currently on Suboxone. Family history. Mother had leukemia. Blood clots. Maternal grandmother had breast cancer. Allergies Allergy/AdvReac Type Severity Reaction Status Date / Time No Known Allergies Allergy Unverified 10/05/15 12:41 Home Medications Medication Instructions Recorded Confirmed Type buprenorphine 8 mg-naloxone 2 mg 1 tab sublingual BID 12/22/24 12/22/24 History sublingual tablet ibuprofen 0 mg PO UD PRN Pain 12/22/24 12/22/24 History naloxone 4 mg/actuation nasal spray 1 spray intranasal UD PRN Other 12/22/24 12/22/24 History Past Med/Surg History Problem List (Updated 12/23/24 @ 00:03 by Afua Moraes MD) Emphysema, interstitial (Acute) Pneumothorax (Acute) Depression Anxiety (Acute) Chest pain (Acute) Dental caries (Acute) Diffuse abdominal pain (Acute) Knee pain (Acute) Left flank pain (Acute) Lumbar strain (Acute) Renal colic (Acute) Right knee injury (Acute) Vomiting (Acute) Social History Smoking Status: Current every day smoker Tobacco Type: Cigarettes Cigarettes Per Day: 20; Second Hand Exposure: No; Do You Dip or Chew Tobacco: No; Tobacco Cessation Education Requested by Patient: No Hx Alcohol Use: No Hx Substance Use: Yes Last Used Substance: Unknown Preferred Language: Sri [place]ankan Communication Ability: Effective Emergency Physician Required: No Beliefs That Will Affect Care: None Current Living Situation: Family Current Living Situation Comment: lives at home with daughter and Other Information That Helps Us Care for You: No Feels Safe at Home: Yes Safety Concerns: Feels Safe At This Time Assistive Devices: None Review of Systems Review of Systems: All systems reviewed & are unremarkable except as noted in HPI & below Physical Exam Physical Exam: General- Not in acute distress Head- atraumatic Eyes- EOMI. Neck- supple, no JVD. Lungs- clear to auscultation no wheezing or crackles Heart- regular rate and rhythm; no murmur, no gallop. Abdomen- normal bowel sounds, soft, nontender, no distension Extremities- no obvious edema, moves extremities Neuro- alert, oriented EOMI; no facial palsy; no dysarthria; moves extremities Results & Data Results & Data Vital Signs (Past 12 Hours) Vital Signs Temp Pulse Pulse Resp BP BP Pulse Ox 12/22/24 21:05 105 H 17 160/98 H 96 12/22/24 21:00 160/98 H 12/22/24 21:00 160/98 H 12/22/24 21:00 160/98 H 12/22/24 21:00 110 H 18 95 12/22/24 21:00 160/98 H 12/22/24 21:00 160/98 H 12/22/24 20:51 102 H 100 12/22/24 20:45 108 H 100 12/22/24 20:45 159/94 H 12/22/24 20:45 159/94 H 12/22/24 20:45 159/94 H 12/22/24 20:45 159/94 H 12/22/24 20:45 159/94 H 12/22/24 20:42 108 H 100 12/22/24 20:30 174/103 H 12/22/24 20:30 174/103 H 12/22/24 20:30 174/103 H 12/22/24 20:30 174/103 H 12/22/24 20:30 117 H 100 12/22/24 20:30 174/103 H 12/22/24 20:30 174/103 H 12/22/24 20:30 174/103 H 12/22/24 20:21 115 H 100 12/22/24 20:15 100 H 100 12/22/24 20:15 144/96 H 11/06/25 20:15 144/96 H 12/22/24 20:15 144/96 H 12/22/24 20:15 144/96 H 12/22/24 20:15 144/96 H 12/22/24 20:12 107 H 100 12/22/24 20:00 157/91 H 12/22/24 20:00 157/91 H 12/22/24 20:00 18 157/91 H 12/22/24 20:00 157/91 H 12/22/24 20:00 157/91 H 12/22/24 20:00 98 H 100 12/22/24 20:00 103 H 20 157/91 H 100 12/22/24 19:51 99 H 100 12/22/24 19:45 125 H 12/22/24 19:45 172/139 H 12/22/24 19:45 172/139 H 12/22/24 19:45 172/139 H 12/22/24 19:45 172/139 H 12/22/24 19:45 172/139 H 12/22/24 19:42 120 H 12/22/24 19:30 104 H 12/22/24 19:30 148/118 H 12/22/24 19:30 148/118 H 12/22/24 19:30 148/118 H 12/22/24 19:30 148/118 H 12/22/24 19:30 148/118 H 12/22/24 19:21 97 H 17 98 12/22/24 19:12 106 H 17 96 12/22/24 19:12 161/99 H 12/22/24 19:12 161/99 H 12/22/24 19:12 161/99 H 12/22/24 19:12 161/99 H 12/22/24 19:12 161/99 H 12/22/24 19:12 113 H 26 H 161/99 H 92 12/22/24 19:00 139/89 12/22/24 19:00 139/89 12/22/24 19:00 139/89 12/22/24 19:00 139/89 12/22/24 19:00 139/89 12/22/24 19:00 101 H 19 99 12/22/24 18:51 108 H 21 97 12/22/24 18:51 154/101 H 12/22/24 18:51 154/101 H 12/22/24 18:51 154/101 H 12/22/24 18:51 154/101 H 12/22/24 18:00 92 H 15 118/75 95 12/22/24 17:30 82 16 109/76 96 12/22/24 17:00 92 H 18 113/68 96 12/22/24 16:44 89 12/22/24 16:01 98 12/22/24 15:54 36.7 C 93 H 16 162/94 H 96 O2 Del Method O2 Flow Rate 12/22/24 21:05 Nasal Cannula 3 12/22/24 21:00 12/22/24 21:00 12/22/24 21:00 12/22/24 21:00 12/22/24 21:00 12/22/24 21:00 12/22/24 20:51 12/22/24 20:45 12/22/24 20:45 12/22/24 20:45 12/22/24 20:45 12/22/24 20:45 12/22/24 20:45 12/22/24 20:42 12/22/24 20:30 12/22/24 20:30 12/22/24 20:30 12/22/24 20:30 12/22/24 20:30 12/22/24 20:30 12/22/24 20:30 12/22/24 20:30 12/22/24 20:21 Non-rebreather 15 12/22/24 20:15 12/22/24 20:15 12/22/24 20:15 12/22/24 20:15 12/22/24 20:15 12/22/24 20:15 12/22/24 20:12 12/22/24 20:00 12/22/24 20:00 12/22/24 20:00 12/22/24 20:00 12/22/24 20:00 12/22/24 20:00 12/22/24 20:00 Non-rebreather 15 12/22/24 19:51 12/22/24 19:45 12/22/24 19:45 12/22/24 19:45 12/22/24 19:45 12/22/24 19:45 12/22/24 19:45 12/22/24 19:42 12/22/24 19:30 12/22/24 19:30 12/22/24 19:30 12/22/24 19:30 12/22/24 19:30 12/22/24 19:30 12/22/24 19:21 12/22/24 19:12 12/22/24 19:12 12/22/24 19:12 12/22/24 19:12 12/22/24 19:12 12/22/24 19:12 12/22/24 19:12 Room Air 12/22/24 19:00 12/22/24 19:00 12/22/24 19:00 12/22/24 19:00 12/22/24 19:00 12/22/24 19:00 12/22/24 18:51 12/22/24 18:51 12/22/24 18:51 12/22/24 18:51 12/22/24 18:51 12/22/24 18:00 Room Air 12/22/24 17:30 Room Air 12/22/24 17:00 Room Air 12/22/24 16:44 12/22/24 16:01 Room Air 12/22/24 15:54 Room Air Diagnostic Findings Laboratory Results WBC 7.14 K/ul (4.8-10.8) 12/22/24 16:16 RBC 4.84 M/uL (4.20-5.40) 12/22/24 16:16 Hgb 14.3 g/dl (12.0-16.0) 12/22/24 16:16 Hct 40.5 % (37.0-47.0) 12/22/24 16:16 MCV 83.7 fL (80.0-100.0) 12/22/24 16:16 MCH 29.5 pg (25.0-34.0) 12/22/24 16:16 MCHC 35.3 g/dL (32.0-36.0) 12/22/24 16:16 RDW Std Deviation 39.2 fL (36.4-46.3) 12/22/24 16:16 RDW Coeff of Angela 13.0 % (11.5-14.5) 12/22/24 16:16 Plt Count 242 K/uL (130-400) 12/22/24 16:16 MPV 10.4 fL (9.4-12.4) 12/22/24 16:16 Immature Gran % (Auto) 0.1 % 12/22/24 16:16 Neut % (Auto) 61.4 % 12/22/24 16:16 Lymph % (Auto) 28.7 % 12/22/24 16:16 [place] % (Auto) 7.1 % 12/22/24 16:16 Eos % (Auto) 2.0 % 12/22/24 16:16 Baso % (Auto) 0.7 % 12/22/24 16:16 Neut # (Auto) 4.38 K/uL (1.40-6.50) 12/22/24 16:16 Lymph # (Auto) 2.05 K/uL (1.20-3.40) 12/22/24 16:16 [place] # (Auto) 0.51 K/uL (0.11-0.59) 12/22/24 16:16 Eos # (Auto) 0.14 K/uL (0.00-0.50) 12/22/24 16:16 Baso # (Auto) 0.05 K/uL (0.00-0.20) 12/22/24 16:16 Immature Gran # (Auto) 0.01 K/uL (0.01-0.20) 12/22/24 16:16 Sodium 136 mmol/L (136-145) 12/22/24 16:16 Potassium 3.5 mmol/L (3.5-5.1) 12/22/24 16:16 Chloride 105 mmol/L (98-107) 12/22/24 16:16 Carbon Dioxide 23 mmol/L (21-32) 12/22/24 16:16 Anion Gap 8 (3-11) 12/22/24 16:16 BUN 10 mg/dl (6-23) 12/22/24 16:16 Creatinine 0.59 mg/dl (0.6-1.2) L 12/22/24 16:16 Est Cr Clr Drug Dosing 166.7 ml/min 12/22/24 16:16 eGFR 120.46 12/22/24 16:16 BUN/Creatinine Ratio 16.9 (10-20) 12/22/24 16:16 Glucose 99 mg/dl (70-99(Fasting)) 12/22/24 16:16 Calcium 8.9 mg/dl (8.6-10.3) 12/22/24 16:16 Total Bilirubin 0.2 mg/dl (0.2-1.0) 12/22/24 16:16 AST 15 U/L (13-39) 12/22/24 16:16 ALT 15 U/L (7-52) 12/22/24 16:16 Alkaline Phosphatase 75 U/L (34-104) 12/22/24 16:16 Troponin I High Sens < 2.3 pg/ml (0-14) 12/22/24 16:16 Total Protein 7.7 gm/dl (6.0-8.3) 12/22/24 16:16 Albumin 3.9 gm/dl (3.4-5.0) 12/22/24 16:16 Globulin 3.8 gm/dl (2.5-4.0) 12/22/24 16:16 Albumin/Globulin Ratio 1.0 (0.9-2) 12/22/24 16:16 Lipase 15 U/L (11-82) 12/22/24 16:16 Impressions Chest X-Ray 12/22/24 16:01 Clinical History: Chest pain Technique: A frontal view of the chest was obtained Findings: There is a small right pneumothorax versus a prominent emphysematous bulla. The heart size is within normal limits. No pleural effusion or left pneumothorax is seen. There is diffuse interstitial prominence No fracture is noted. No foreign body is seen Impression: 1. Possible right pneumothorax, versus an emphysematous bulla. Chest CT could be obtained for further evaluation 2. Diffuse interstitial prominence that may be due to viral pneumonitis ACT 112: Positive. There are findings on this exam that require communication between the performing entity and the patient following Patient Test Result Information Act ([place] ACT 112) guidelines. Electronically signed by Lucien Ann 12-22-2024 4:[address] 12/22/24 16:43 EXAMINATION: Chest CT with CLINICAL HISTORY: Right pneumothorax versus bulla COMPARISON: Radiograph 05/29/2015 TECHNIQUE: Contiguous axial images were obtained through the chest with the use of intravenous contrast. Sagittal and coronal reformations are supplied. FINDINGS: Severe pulmonary emphysema and/or interstitial lung disease noted. A large bulla is present in the right lung apex. There is also a moderate size pneumothorax involving the mid to lower hemithorax, image 41, series 3. No shift or tension of the mediastinum. Biapical pleural-parenchymal scarring and anatomic distortion noted. Multiple paraseptal bulla in the left lung without pneumothorax at this time. No dominant airspace consolidation. Mediastinal and bilateral hilar adenopathy is present. Trachea and mainstem bronchi are patent. Thyroid is normal in size. Heart size within normal limits. No pleural or pericardial effusion. Limited visualization of the upper abdomen shows no acute abnormality. Mild osseous demineralization and moderate kyphosis noted. Heterogeneous lucency present in the L3 vertebral body which should be correlated with prior imaging. No compression fracture. IMPRESSION: 1. Moderate right pneumothorax, also with a right apical bulla and no CT features of tension. The critical findings protocol was activated at 6:05 PM EST on 12/22/2024. 2. Severe pulmonary emphysema and/or interstitial lung disease with mediastinal and hilar adenopathy. Please correlate with clinical history. ACT 112: Positive. There are findings on this examination that require communication between the performing entity and the patient following Patient Test Result Information Act ([place] ACT 112) guidelines. Electronically signed by Radhika Patel 12-22-2024 6:07 PM ECG Additional Comments: ECG. Normal sinus rhythm rate of 98. No significant changes found. QTc 441 Code Status & VTE Plan VTE Prophylaxis Plan VTE Prophylaxis will be ordered: Yes
[2024-12-22] MEDS ORDERED: NITROGLYCERIN SL 0.4 MG/TAB TAB SL PRN (23:02)
[2024-12-22] MEDS ORDERED: POLYETHYLENE (MIRALAX) 17 GM PACK PO PRN (23:02)
[2024-12-22] MEDS: HYDROmorphone INJ 0.5 MG/0.5 ML SYR IV STA (23:11)
[2024-12-22] MEDS: ENOXAPARIN INJ 40 MG/0.4 ML SYR SQ SCH (23:33)
[2024-12-23] MEDS: ACETAMINOPHEN 1,000 MG/100 ML VIAL IV PRN (01:55)
--- NOTE | 2024-12-23 08:19 | XRay Report ---
EXAM: XR chest 1V portable CLINICAL HISTORY: Pneumothorax. TECHNIQUE: An X-ray image of the chest was obtained in an AP portable projection. COMPARISON: Prior CT chest and chest X-ray, both dated 12/22/2024. FINDINGS: Pulmonary Parenchyma: A newly placed right hemithorax pigtail catheter is present, with its distal tip seen at the midzone. There is regression of the previously noted right-sided pneumothorax, which is currently mild and apical. Stable COPD changes and a stable, large right apical emphysematous bulla are seen. The previously noted diffuse reticular shadowing and mild related haziness are currently more evident. There is stable, slight elevation of the left hemidiaphragm. There is no evidence of pleural effusion. Heart and Mediastinum: The size and shape of the heart are normal. There is no mediastinal widening or masses. No hilar or mediastinal lymphadenopathy is identified. Bony Thorax: The bony thorax appears intact, without fractures or deformities. Soft Tissues: The soft tissues overlying the chest wall are unremarkable. EKG leads are projected over the chest wall. IMPRESSION: 1. A newly placed right hemithorax pigtail catheter, as described. 2. Regression of the previously noted right-sided pneumothorax, which is currently mild and apical. Electronically signed by Memo Rasmussen 12-23-2024 08:19 AM
[2024-12-23] MEDS: BUPRENORPHINE/NALOXONE 8/2 MG TAB SL SCH (08:34)
[2024-12-23] MEDS: INFLUENZA VACC TS2025-26(6m+)/PF (IIV3) 0.5mL Syr IM ONE (08:36)
--- NOTE | 2024-12-23 12:36 | Electrocardiogram Report ---
Test Reason : Blood Pressure : */* mmHG Vent. Rate : 98 BPM Atrial Rate : 98 BPM P-R Int : 122 ms QRS Dur : 84 ms QT Int : 346 ms P-R-T Axes : 61 56 45 degrees QTcB Int : 441 ms Normal sinus rhythm Normal ECG When compared with ECG of 25-Sep-2014 22:17, No significant change was found Confirmed by Armaan Brar ([id number]) on 12/23/2024 12:36:10 PM Referred By: REFERRED SELF Confirmed By: Armaan Brar
--- NOTE | 2024-12-23 14:09 | Hospitalist Progress Note ---
Date of Service December 23, 2024 Assessment & Plan (1) Pneumothorax: Plan: Per admitting provider w/ addendum: 34-year-old female with past medical history significant for kidney stones, depression and anxiety presents with chest pain and shortness of breath and found to have a right pneumothorax and status post pigtail chest tube by ER. 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 She took ibuprofen and it seemed to help for some time. But the pain came back severely radiating to the back associated with shortness of breath which prompted her to come to the ER. Currently h emodynamically okay and saturating okay on 3 L. Denies any fevers. Denies any cough. No runny nose or sore throat. No headache. No nausea. No abdominal pain. Normal bowel and bladder movements. Patient states since last 2 to 3 months walking from her home to her workplace which is 4 minutes away she was huffing and puffing. And also climbing steps in her house making her short of breath. Patient also states about couple of weeks ago she inhaled some gases from the refrigerator at workplace and after that she had a cough with blood in the sputum, but it happened only once. Patient states she smokes about a 1 pack of cigarettes daily since last 20 years.Patient is somewhat tearful. Patient states her family lives about 45 minutes away. Pneumothorax Right side s/p pigtail chest tube by ER Also Ct scan showing severe emphysema and and /or ILD with mediastinal and hilar adenopathy Follow up CXR shows improved pneumothorax pt was admitted to telemetry Pulmonary medicine consulted - chest tube clamped now, blood work / further work up of pt's emphysema/ pneumothorax ordered. Further recommendations pending. Tobacco abuse counselling Dvt prophylaxis Lovenox Admission and Anticipated Discharge Date Admission Date: December 22, 2024 Subjective Pt seen in follow up of pneumothorax chest tube placed in ED last evening Currently sitting up in bed in NAD denies fever, chills, shortness of breath. Has chest discomfort only at the site of chest tube. no abd. pain, n/v Review of Systems Review of Systems: All systems reviewed & are unremarkable except as noted in Subjective Physical Exam Physical Exam: General- WD/WN young F in NAD Head- atraumatic Eyes- EOMI. Neck- supple, no JVD. Lungs- clear to auscultation no wheezing or crackles, + chest tube placed Heart- regular rate and rhythm; no murmur, no gallop. Abdomen- normal bowel sounds, soft, nontender, no distension Extremities- no obvious edema, moves extremities. + clubbed nails (per pt had for a while) Neuro- alert, oriented EOMI; no facial palsy; no dysarthria; moves extremities Results & Data Results & Data Vital Signs (Past 12 Hours) Vital Signs Temp Pulse Pulse Resp BP Pulse Ox O2 Del Method 12/23/24 13:49 91 H 12/23/24 12:19 36.6 C 84 20 119/71 96 Nasal Cannula 12/23/24 07:55 73 12/23/24 07:51 Nasal Cannula 12/23/24 07:50 36.6 C 76 21 114/67 97 Nasal Cannula 12/23/24 03:30 36.9 C 79 18 109/66 95 Room Air O2 Flow Rate 12/23/24 13:49 12/23/24 12:19 2 12/23/24 07:55 12/23/24 07:51 2 12/23/24 07:50 1 12/23/24 03:30 Laboratory Results 12/23/24 12/22/24 Range/Units 11:01 16:16 WBC 7.14 (4.8-10.8) K/ul RBC 4.84 (4.20-5.40) M/uL Hgb 14.3 (12.0-16.0) g/dl Hct 40.5 (37.0-47.0) % MCV 83.7 (80.0-100.0) fL MCH 29.5 (25.0-34.0) pg MCHC 35.3 (32.0-36.0) g/dL RDW Std Deviation 39.2 (36.4-46.3) fL RDW Coeff of Angela 13.0 (11.5-14.5) % Plt Count 242 (130-400) K/uL MPV 10.4 (9.4-12.4) fL Immature Gran % (Auto) 0.1 % Neut % (Auto) 61.4 % Lymph % (Auto) 28.7 % [place] % (Auto) 7.1 % Eos % (Auto) 2.0 % Baso % (Auto) 0.7 % Neut # (Auto) 4.38 (1.40-6.50) K/uL Lymph # (Auto) 2.05 (1.20-3.40) K/uL [place] # (Auto) 0.51 (0.11-0.59) K/uL Eos # (Auto) 0.14 (0.00-0.50) K/uL Baso # (Auto) 0.05 (0.00-0.20) K/uL Immature Gran # (Auto) 0.01 (0.01-0.20) K/uL Sodium 136 (136-145) mmol/L Potassium 3.5 (3.5-5.1) mmol/L Chloride 105 (98-107) mmol/L Carbon Dioxide 23 (21-32) mmol/L Anion Gap 8 (3-11) BUN 10 (6-23) mg/dl Creatinine 0.59 L (0.6-1.2) mg/dl Est Cr Clr Drug Dosing 166.7 ml/min eGFR 120.46 BUN/Creatinine Ratio 16.9 (10-20) Glucose 99 (70-99(Fasting)) mg/dl Calcium 8.9 (8.6-10.3) mg/dl Total Bilirubin 0.2 (0.2-1.0) mg/dl AST 15 (13-39) U/L ALT 15 (7-52) U/L Alkaline Phosphatase 75 (34-104) U/L Troponin I High Sens < 2.3 (0-14) pg/ml Total Protein 7.7 (6.0-8.3) gm/dl Albumin 3.9 (3.4-5.0) gm/dl Globulin 3.8 (2.5-4.0) gm/dl Albumin/Globulin Ratio 1.0 (0.9-2) Frftr-[id number] Pending Alpha-1-AT Phenotype Pending Lipase 15 (11-82) U/L Vascular Endothelial GF Pending Rheumatoid Factor Cancelled Rheum Factor (Ref Lab) Pending LANE Screen Pending MARIA C-1 Antibody Pending SS-A Antibody Pending SS-A/Ro Antibody Cancelled SS-B Antibody Pending SS-B/La Antibody Cancelled Sm (Barrios) Antibody Pending BUSINESS CONTINUITY COORDINATOR Antibody Cancelled Sm-BUSINESS CONTINUITY COORDINATOR Ab Pending Scl-70 Scleroderma Ab Pending Anti-ds DNA (Crithidia) Pending Anti-Mitochondrial Ab Pending Anti-DNase B (Strep) Pending Medications Administered Current Inpatient Medications Acetaminophen (Acetaminophen 325 Mg Tab) 650 mg PO Q4H PRN PRN Reason: Pain or Fever Stop: 01/21/25 23:01 Buprenorphine/Naloxone (Buprenorphine/Naloxone 8/2 Mg Tab) 1 tab SL BID ANGELICA Stop: 01/22/25 08:59 Last Admin: 12/23/24 08:34 Dose: 1 tab Enoxaparin Sodium (Enoxaparin Inj 40 Mg/0.4 Ml Syr) 40 mg SQ Q24H ANGELICA Stop: 01/21/25 20:59 Last Admin: 12/22/24 23:33 Dose: 40 mg Acetaminophen (Ofirmev) 1,000 mg in 100 mls @ 400 mls/hr IV Q8H PRN PRN Reason: Pain or Fever Stop: 12/25/24 23:01 Last Infusion: 12/23/24 02:10 Dose: Infused Nitroglycerin (Nitroglycerin Sl 0.4 Mg/Tab Tab) 0.4 mg SL Q5M PRN PRN Reason: Chest Pain Stop: 01/21/25 23:01 Polyethylene Glycol (Polyethylene (Miralax) 17 Gm Pack) 17 gm PO DAILY PRN PRN Reason: Constipation Stop: 01/21/25 23:01
--- NOTE | 2024-12-23 15:38 | Pulmonary Consultation ---
Date of Consultation December 23, 2024 Assessment & Plan (1) Secondary spontaneous pneumothorax: (2) Emphysema lung: (3) Interstitial lung disease: (4) Tobacco use: Plan Patient is a 34-year-old female who presents for evaluation of chest pain. Found to have a right pneumothorax. Underwent CT imaging that showed extensive emphysematous changes appreciated predominantly in the upper lobes, a right moderate-sized pneumothorax with large blebs in the right apices of the lung along with significant architectural distortion and interstitial changes as well as mediastinal adenopathy. The patient underwent pigtail catheter placement on the right by the emergency room physician. Chest tube was placed to waterseal. The patient was admitted to the hospital [facility] and pulmonary was consulted for further evaluation. Problem list: Secondary spontaneous pneumothorax on the right status post pigtail catheter 12/22/2024 Extensive emphysema, bullous emphysema Mediastinal adenopathy and hilar Interstitial fibrosis Tobacco use disorder Distant history of illicit substance use (smoked opioid pain pills, snorted cocaine) Differential diagnosis: Differential is broad, this could be lung disease secondary to her history of smoking opioids previously. Also snorted cocaine in the past. Alpha-1 antitrypsin deficiency is also high on the differential given her young age and extent of emphysema. Imaging does not appear as classic cystic lung disease as you would see in LAP or GALLARDO or an Misael Sasha Dubay however these are also on the differential. Also would include pulmonary Langerhans' cell histiocytosis given her smoking history. Plan: Chest tube has been placed to waterseal overnight, I clamped it this morning due to lack of airleak. Repeat chest x-ray today shows stable apical pneumothorax. Keep chest tube clamped tonight. Will repeat chest x-ray tomorrow morning at 7 AM. If the patient develops worsening shortness of breath or chest pain call physician immediately, unclamp chest tube in place to suction and repeat chest x-ray. If pneumothorax fails to improve then we may have to do pleurodesis. I have sent an extensive autoimmune workup including LANE, anti-DNA's, antimitochondrial, anti-Harini. Will also obtain a veg F level. Will obtain an HIV and LDH. Will also get an angiotensin-converting enzyme level. I will start her on Anoro inhaler for now. Fairly asymptomatic from a pulmonary standpoint. Keep oxygen on. Tobacco cessation advised. Patient will likely need lung transplant in the future however she would not even be considered for this if she is smoking. I explained this in detail with her. Recommend nicotine supplementation and cessation counseling. The patient will need to follow-up with me in clinic upon discharge. Thank you for this consult. I will follow along with you. Please call with any questions. History of Present Illness Reason for Consultation: Pneumothorax Requesting Physician: Te Crews MD Attending Physician: Te Crews MD History of Present Illness Patient is a pleasant 34-year-old female with minimal past medical history. The patient presented to the emergency department on 12/22/2024 for evaluation of chest pain. The patient did not have any recent trauma or perform any heavy lifting or abnormal activities recently. She noticed the chest pain when she initially was at work. It did not resolve with time and was increasing so she presented to the hospital for further evaluation. Chest x-ray showed a right pneumothorax with diffuse interstitial prominence appreciated throughout both lung jacome. The patient was taken for CT imaging of the chest without contrast, this showed a right sided pneumothorax. There were large apical blebs on the right and extensive emphysematous changes appreciated bilaterally. Mostly paraseptal and subpleural emphysema appreciated in the upper lobes. Interstitial changes were also appreciated without evidence of acute consolidations. Mediastinal and hilar adenopathy was also appreciated. A pigtail catheter was placed in the right chest by ER physician with improvement in the size of pneumothorax on follow-up imaging. Chest tube was placed to waterseal. The patient was admitted to the hospitalist service and pulmonary was consulted for further evaluation. When I examined the patient today she is resting comfortably on nasal cannula. Chest tube is to waterseal. There is no active airleak. No airleak with coughing. Lungs are without wheezing. I did not appreciate any subcutaneous emphysema. I can appreciate clubbing of her digits, no other skin rashes appreciated. The patient denies any previous pulmonary symptoms. She does not have a childhood history of asthma. She does not wheeze and does not use inhalers. Does not notice significant dyspnea. She says that occasionally when she was walking home from work which is about a 4-minute walk she will get some shortness of breath and when she goes up stairs but otherwise she is asymptomatic. Has not had any previous imaging of the chest with CT. She has noticed the clubbing in her digits for the past few years and thinks that it has been progressing. She says that she has been evaluated for this in the past by her previous doctors and no conclusions were drawn. She says that she has some pain in her right knee and her legs swell very easily but she has not noticed other joint swelling or pain. She denies any family history of lung disease or liver disease. She denies any family history of autoimmune disorders and does not carry a diagnosis of autoimmune disorders herself. She has 1 child, has not had any miscarriages or blood clots in the past. Her mother has blood clots but she is not aware of any hereditary disorders that her mother carries. 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 She actively smokes, she started smoking when she was in her late teens and continues to smoke almost 1 pack daily. No significant vaping. Previously within the past 10 years she used illicit substances. She says that she occasionally snorted cocaine and she would smoke oxycodone tablets. She has not done this for many years. Allergies Allergy/AdvReac Type Severity Reaction Status Date / Time No Known Allergies Allergy Unverified 10/05/15 12:41 Home Medications Medication Instructions Recorded Confirmed Type buprenorphine 8 mg-naloxone 2 mg 1 tab sublingual BID 12/22/24 12/22/24 History sublingual tablet ibuprofen 0 mg PO UD PRN Pain 12/22/24 12/22/24 History naloxone 4 mg/actuation nasal spray 1 spray intranasal UD PRN Other 12/22/24 12/22/24 History Patient History Social History Smoking Status: Current every day smoker Tobacco Type: Cigarettes Cigarettes Per Day: 20; Second Hand Exposure: No; Do You Dip or Chew Tobacco: No; Tobacco Cessation Education Requested by Patient: No Hx Alcohol Use: No Hx Substance Use: Yes Last Used Substance: Unknown Preferred Language: Lao Communication Ability: Effective Water Mangle Tender Required: No Beliefs That Will Affect Care: None Current Living Situation: Family Current Living Situation Comment: lives at home with daughter and Other Information That Helps Us Care for You: No Feels Safe at Home: Yes Safety Concerns: Feels Safe At This Time Assistive Devices: None Review of Systems Review of Systems: She denies fevers, chills, night sweats or weight loss. Has mild dyspnea when Bedside walking and going up flights does not have any respiratory symptoms. Did have some chest pain however it is a little bit better after chest tube insertion. Endorses some lower extremity edema for which she wears compression stockings. Endorses pain in her right knee. Endorses clubbing of her digits. Physical Exam Physical Exam: Physical examination: General: Appears stated age, well-kept, not in acute distress. On nasal cannula. HEENT: Normocephalic, atraumatic. Extraocular movements intact. Sclera are nonicteric. No JVD appreciated. Skin: Warm and dry. No rashes appreciated. No jaundice appreciated. Clubbing appreciated of her digits in her upper extremities. Lymphatic: No pathologic/enlarged lymph nodes palpated in the neck, axilla. Cardiovascular: Heart is a regular rate and rhythm, no murmurs appreciated on my exam. Lower extremity edema is present, the patient has extensive compression stockings on so it is difficult to assess the edema. Lungs: Clear bilaterally, no wheezing appreciated. No crackles. Nontachypneic. Resting comfortably on nasal cannula. Chest tube is in place to waterseal, no airleak is present. Abdomen: Nondistended, nontender to palpation. No masses appreciated. Musculoskeletal: Normal muscle mass and tone. No gross joint deformity abnormalities. No effusions appreciated. Says she is swelling of her right knee however I cannot examine it due to her compression stockings. Neurologic: Awake and alert, oriented. CN II through XII are grossly intact. Speech is fluent. Nonfocal exam. Psychiatric: Appropriate cooperative during my exam. Results & Data Results & Data Vital Signs (Past 12 Hours) Vital Signs Temp Pulse Pulse Resp BP Pulse Ox O2 Del Method 12/23/24 13:49 91 H 12/23/24 12:19 36.6 C 84 20 119/71 96 Nasal Cannula 12/23/24 07:55 73 12/23/24 07:51 Nasal Cannula 12/23/24 07:50 36.6 C 76 21 114/67 97 Nasal Cannula 12/23/24 03:30 36.9 C 79 18 109/66 95 Room Air O2 Flow Rate 12/23/24 13:49 12/23/24 12:19 2 12/23/24 07:55 12/23/24 07:51 2 12/23/24 07:50 1 12/23/24 03:30 Laboratory Results No significant leukocytosis or anemia. Renal function is normal. Calcium is 8.9. Normal liver function. Diagnostic Findings I reviewed the patient's imaging extensively. She does not have any previous CT imaging of the chest. She did have some CT abdomen and pelvis back in 2014 which caught the lower lobes of the lungs which appeared without disease process at that time. The CT chest from 12/22/2024 shows marked intraparenchymal changes. There is extensive emphysema with bullous. Pneumothorax present. Subpleural and paraseptal emphysema mostly appreciated. Lower lung jacome are generally preserved and without disease process. There is evidence of increased in terstitial markings as well with GGO and tree-in-bud changes. Significant architectural distortion. Adenopathy appreciated. No significant nodules and no consolidations appreciated. PG Care Time/CCT Total # of Minutes Spent Total Time Spent with Patient: Total time spent is greater than 50% in coordination of care (as documented) at patient's floor/unit and/or counseling patient: [place] [address] IN/OBS CONSULT LVL 4,60M Patient Type New History Comprehensive Exam Comprehensive Medical Decision Making High Complexity Diagnoses Secondary spontaneous pneumothorax J93.12 Emphysema lung J43.9 Interstitial lung disease J84.9 Tobacco use Z72.0
--- NOTE | 2024-12-23 15:53 | XRay Report ---
XR chest 1V portable CLINICAL HISTORY: pneumothorax COMPARISON STUDY: 12/23/2024 and 12/22/2024 FINDINGS: Stable right pigtail pleural catheter lateral right mid hemithorax. Stable severe emphysema . Stable trace right apical pneumothorax. No consolidation or pleural effusion. IMPRESSION: Stable exam. ACT 112: Negative or not required by law. Electronically signed by: Mukesh Castaneda M.D. 12/23/2024 3:51 PM
[2024-12-23] MEDS: UMECLIDINIUM/VILANTEROL 62.5/25MCG 7 PUFFS/INHALER INH SCH (16:13)
[2024-12-23] MEDS: NICOTINE 14 MG/24 HR PATCH TD SCH (19:46)
[2024-12-24] MEDS: ACETAMINOPHEN 325 MG TAB PO PRN (04:45)
[2024-12-24 06:57] LABS: Hematocrit (blood only) 38.2 % (37.0-47.0); Hemoglobin 13.3 g/dl (12.0-16.0); Mean Corpuscular Hemoglobin 29.4 pg (25.0-34.0); Mean Corpuscular Volume 84.5 fL (80.0-100.0); Platelet Count 215 K/uL (130-400); RDW Standard Deviation 40.9 fL (36.4-46.3); Red Blood Count 4.52 M/uL (4.20-5.40); White Blood Count 5.24 K/ul (4.8-10.8)
[2024-12-24 07:15] LABS: Anion Gap 7.0 (3-11); Blood Urea Nitrogen 8.0 mg/dl (6-23); Calcium 8.7 mg/dl (8.6-10.3); Carbon Dioxide 23.0 mmol/L (21-32); Chloride 107.0 mmol/L (98-107); Creatinine Clr Calc Pharmacy 162.4 ml/min; Glucose 114.0 mg/dl (70-99(Fasting)); Magnesium 1.9 mg/dl (1.7-2.4); Potassium 3.5 mmol/L (3.5-5.1); Sodium 137.0 mmol/L (136-145)
--- NOTE | 2024-12-24 07:53 | XRay Report ---
EXAM: XR chest 1V portable CLINICAL HISTORY: f/u pneumothorax TECHNIQUE: An X-ray image of the chest was obtained in the AP position. COMPARISON: Chest X-ray, dated 12/23/2024. FINDINGS: Pulmonary Parenchyma: There is a redemonstrated right hemithorax pigtail catheter with its distal tip seen in the midzone. There is a rather stable, previously noted, right-sided mild apical pneumothorax. Stable, previously seen COPD changes with a large right apical emphysematous bulla are observed. Stable, previously noted, prominent interstitial markings and diffuse reticular opacities with mild related haziness are present. There is no evidence of pleural effusion. Heart and Mediastinum: The heart size and shape are normal. There is no mediastinal widening or masses. No hilar or mediastinal lymphadenopathy is seen. Bony Thorax: The bony thorax appears intact without fractures or deformities. Soft Tissues: The soft tissues overlying the chest wall are unremarkable. ECG monitor leads are noted. IMPRESSION: 1. There is a rather stable, previously noted, right-sided mild apical pneumothorax. 2. A right hemithorax pigtail catheter is redemonstrated, with its distal tip seen in the midzone. 3. Stable, previously seen COPD changes with a large right apical emphysematous bulla. 4. Stable, previously noted, prominent interstitial markings and diffuse reticular opacities with mild related haziness. Electronically signed by Memo Rasmussen 12-24-2024 07:53 AM
--- NOTE | 2024-12-24 09:43 | CT Scan Report ---
CHEST CT WITHOUT CONTRAST HIGH RESOLUTION PROTOCOL CLINICAL HISTORY: Interstitial lung disease. Emphysema. COMPARISON STUDY: Chest CT December 22, 2024. Chest radiograph performed earlier today. TECHNIQUE: Thin cut axial images of the chest were obtained in supine position during inspiration and expiration. Patient was unable to tolerate prone imaging. A dose lowering technique was utilized ad pedro to the principles of ALARA. FINDINGS: There are multiple mildly enlarged mediastinal lymph nodes. Index right lower paratracheal lymph node on image 23 of 60 measures 1.9 x 1.4 cm. These are unchanged. Mildly enlarged bilateral hi lar lymph nodes are better depicted on prior contrast enhanced chest CT the size of the heart is norm al. There is no pericardial effusion. Right pleural catheter is in place. The right pneumothorax has nearly completely resolved. There is trace residual right pleural gas anteriorly. There is no left pn eumothorax. Linear subpleural densities within the lower lobes represent atelectasis. Note is again m oralia of upper lobe predominant severe paraseptal/bullous emphysema. There is also upper lobe predomina nt architectural distortion and mild upper lobe predominant groundglass opacity. No confluent consoli dation is present. Central airways are patent. There are no suspicious pulmonary nodules. There is no honeycombing. IMPRESSION: 1. Right pleural catheter in place. Near complete resolution of the right pneumothorax. Trace residua l right pleural gas. 2. Redemonstration of severe upper lobe predominant bullous emphysema, architectural distortion and s cattered groundglass opacities. No confluent consolidation. 3. Mildly enlarged mediastinal and bilateral hilar lymph nodes. Although nonspecific, these are proba slava related to interstitial lung disease. ACT 112: Negative or not required by law. Electronically signed by: Tonio Garcia M.D. 12/24/2024 9:41 AM
--- NOTE | 2024-12-24 09:51 | CT Scan Report ---
CT OF THE ABDOMEN WITHOUT CONTRAST CLINICAL HISTORY: Interstitial lung disease/emphysema. Evaluate for renal angiomyolipoma. COMPARISON STUDY: Renal ultrasound October 05, [address] of the abdomen and pelvis January 26 5. TECHNIQUE: Axial images of the abdomen were obtained without IV contrast. A dose lowering technique w as utilized adhering to the principles of ALARA. FINDINGS: Please note that the chest CT will be reported separately. No pneumatosis, free air or port al venous gas is present. No renal lesions are identified on this exam. Specifically, no fat-containi ng renal lesions are present. There is no hydronephrosis. There are no renal calculi. Unenhanced imag es of the liver, spleen, adrenal glands and pancreas are unremarkable. There is no abdominal lymphade nopathy. There are gallstones within the gallbladder. Caliber of visualized small and large bowel are normal. IMPRESSION: 1. No renal lesions identified on unenhanced exam. No renal angiomyolipomas. 2. Cholelithiasis. ACT 112: Negative or not required by law. Electronically signed by: Tonio Garcia M.D. 12/24/2024 9:49 AM
[2024-12-24] MEDS: REMOVE NICODERM PATCH SCH (09:59)
[2024-12-24] MEDS ORDERED: Nursing to Pharmacy Communication SCH (10:00)
[2024-12-24] MEDS: POTASSIUM CHLORIDE CRTAB 20 MEQ TABCR PO STA ×2 (10:03)
[2024-12-24 11:43] VITALS: RESP 18; TEMP 98.8; O2SAT 97
--- NOTE | 2024-12-24 12:41 | Pulmonology Progress Note ---
Date of Service December 24, 2024 Assessment & Plan (1) Secondary spontaneous pneumothorax: (2) Emphysema lung: (3) Interstitial lung disease: (4) Tobacco use: Plan Patient is a 34-year-old female who presents for evaluation of chest pain. Found to have a right pneumothorax. Underwent CT imaging that showed extensive emphysematous changes appreciated predominantly in the upper lobes, a right moderate-sized pneumothorax with large blebs in the right apices of the lung nina ng with significant architectural distortion and interstitial changes as well as mediastinal adenopathy. The patient underwent pigtail catheter placement on the right by the emergency room physician. Chest tube was placed to waterseal. The patient was admitted to the hospital theod[facility] and pulmonary was consulted for further evaluation. Problem list: Secondary spontaneous pneumothorax on the right status post pigtail catheter 12/22/2024, removed 12/24/2024 Extensive emphysema, bullous emphysema Mediastinal adenopathy and hilar Interstitial fibrosis Tobacco use disorder Distant history of illicit substance use (smoked opioid pain pills, snorted cocaine) Differential diagnosis: Differential is broad, this could be lung disease secondary to her history of smoking opioids previously. Also snorted cocaine in the past. Alpha-1 antitrypsin deficiency is also high on the differential given her young age and extent of emphysema. Imaging does not appear as classic cystic lung disease as you would see in LAP or GALLARDO or an Misael Sasha Dubay however these are also on the differential. Also would include pulmonary Langerhans' cell histiocytosis given her smoking history. Plan: I personally discussed this case with thoracic surgery at [facility]. We discussed the patient's clinical history and imaging findings. They recommended removing chest tube rather than pleurodesis as this would limit her ability to get lung transplant in the future. They recommend referral for ILD specialist in the outpatient setting (they recommend Dr. Yrn Corrales at [facility]). Chest tube was removed today. Chest x-ray stable after chest tube removal. I performed a high-resolution CT scan today. This showed almost complete resolution of pneumothorax with chest tube clamped. Redemonstration of the se sina emphysematous changes, subpleural and paraseptal distribution predominantly in the upper lobes. Scattered GGO's appreciated without consolidation. Mediastinal and hilar adenopathy appreciated. CT of the abdomen did not show any renal abnormalities or evidence of angiomyolipomas. I have sent an extensive autoimmune workup including LANE, anti-DNA's, antimitochondrial, anti-Harini. Will also obtain a VEGF-D level. No evidence of angiomyolipomas in the kidneys. HIV is negative. LDH not elevated. Will also get an angiotensin-converting enzyme level. I will start her on Anoro inhaler for now. Fairly asymptomatic from a pulmonary standpoint. Tobacco cessation advised. Patient will likely need lung transplant in the future however she would not even be considered for this if she is smoking. I explained this in detail with her. She is very motivated to stop. I also spoke with her partner and he is going to try to quit with her. Discharge recommendations: Patient may be discharged today if desired. Patient was instructed to avoid lifting (no more than 10 pounds 4 the next 2 weeks), no straining (avoid constipation), no flying, no scuba diving, no contact sports. Smoking cessation discussed in detail. Patient would like to have nicotine patches and nicotine gum prescribed to her. She is doing well with this. Patient will need to follow-up with me in clinic in approximately 2 weeks. At follow-up we will obtain PFTs and follow-up on send out labs. We will also consider referral for ILD specialist and possible lung biopsy. Please discharge home with Anoro inhaler or similar inhaler as well as albuterol as needed. Thank you for this consult. I will sign off at this time and follow-up in the outpatient setting. Please call me directly if any questions. Admission and Anticipated Discharge Date Admission Date: December 22, 2024 Subjective Patient seen and examined this morning. She is doing well today. On room air. Not having significant chest pain. Does have a little bit of discomfort and burning sensation in her right shoulder. Chest tube was clamped since yesterday afternoon. Repeat imaging shows stable pneumothorax versus apical bleb. I did get a HRCT today with the chest tube clamped, pneumothorax is almost completely resolved. Chest tube was removed at bedside. Occlusive and transparent dressing was placed. Nurse was notified. X-ray ordered. Review of Systems Review of Systems: Negative except as in HPI Physical Exam Physical Exam: Physical examination: General: Appears stated age, well-kept, not in acute distress. On nasal cannula. HEENT: Normocephalic, atraumatic. Extraocular movements intact. Sclera are nonicteric. No JVD appreciated. Skin: Warm and dry. No rashes appreciated. No jaundice appreciated. Clubbing appreciated of her digits in her upper extremities. Lymphatic: No pathologic/enlarged lymph nodes palpated in the neck, axilla. Cardiovascular: Heart is a regular rate and rhythm, no murmurs appreciated on my exam. Lower extremity edema is present, the patient has extensive compression stockings on so it is difficult to assess the edema. Lungs: Clear bilaterally, no wheezing appreciated. No crackles. Nontachypneic. Resting comfortably on nasal cannula. Chest tube is clamped. Abdomen: Nondistended, nontender to palpation. No masses appreciated. Musculoskeletal: Normal muscle mass and tone. No gross joint deformity abnormalities. No effusions appreciated. Says she is swelling of her right knee however I cannot examine it due to her compression stockings. Neurologic: Awake and alert, oriented. CN II through XII are grossly intact. Speech is fluent. Nonfocal exam. Psychiatric: Appropriate cooperative during my exam. Results & Data Results & Data Vital Signs (Past 12 Hours) Vital Signs Temp Pulse Pulse Resp BP BP Pulse Ox 12/24/24 11:43 37.1 C 94 H 18 136/79 97 12/24/24 09:00 12/24/24 07:54 36.8 C 95 H 20 120/62 95 12/24/24 07:00 75 12/24/24 04:35 36.6 C 83 17 125/76 93 12/24/24 01:46 O2 Del Method 12/24/24 11:43 Room Air 12/24/24 09:00 Room Air 12/24/24 07:54 Room Air 12/24/24 07:00 12/24/24 04:35 Room Air 12/24/24 01:46 Room Air PG Care Time/CCT Total # of Minutes Spent Total Time Spent with Patient: Total time spent is greater than 50% in coordination of care (as documented) at patient's floor/unit and/or counseling patient: Coding [place] [address] SUB INP/OBS CARE 3/50MIN Patient Type Established History Detailed Exam Detailed Medical Decision Making Moderate Complexity Diagnoses Secondary spontaneous pneumothorax J93.12 Emphysema lung J43.9 Interstitial lung disease J84.9 Tobacco use Z72.0
--- NOTE | 2024-12-24 12:54 | XRay Report ---
XR chest 1V portable CLINICAL HISTORY: f/u pneumothorax, chest tube out COMPARISON STUDY: Chest radiograph and chest CT performed earlier today. FINDINGS: No pneumothorax is identified following right chest tube removal. Relative right apical curt ency is due to bullous emphysema, better depicted on chest CT. Interstitial thickening is again noted . Cardiac size is normal. Mediastinal contours are normal. IMPRESSION: 1. No pneumothorax following right chest tube removal. 2. Redemonstration of upper lobe predominant bullous emphysema and interstitial thickening. ACT 112: Negative or not required by law. Electronically signed by: Tonio Garcia M.D. 12/24/2024 12:52 PM
[2024-12-24 13:25] VITALS: BP 125/76
[2024-12-24 14:21] VITALS: PULSE 94
--- NOTE | 2024-12-24 14:24 | Discharge Summary ---
Date of Service December 24, 2024 Admission HPI Per Admitting Provider 34-year-old female with past medical history significant for kidney stones, depression and anxiety presents with chest pain and shortness of breath and found to have a right pneumothorax and status post pigtail chest tube by ER. 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 She took ibuprofen and it seemed to help for some time. But the pain came back severely radiating to the back associated with shortness of breath which prompted her to come to the ER. Currently hemodynamically okay and saturating okay on 3 L. Denies any fevers. Denies any cough. No runny nose or sore throat. No headache. No nausea. No abdominal pain. Normal bowel and bladder movements. Patient states since last 2 to 3 months walking from her home to her workplace which is 4 minutes away she was huffing and puffing. And also climbing steps in her house making her short of breath. Patient also states about couple of weeks ago she inhaled some gases from the refrigerator at workplace and after that she had a cough with blood in the sputum, but it happened only once. Patient states she smokes about a 1 pack of cigarettes daily since last 20 years.Patient is somewhat tearful. Patient states her family lives about 45 minutes away. Past medical history. As mentioned above. Past surgical history. Cystoscopy/uretero with lithotripsy and right side. Tonsillectomy adenoidectomy. Social history. Smoking 1 pack a day for last 20 years. No alcohol use. No history of drug abuse many years ago. Currently on Suboxone. Family history. Mother had leukemia. Blood clots. Maternal grandmother had breast cancer. Admission Exam Per Admitting Provider General- Not in acute distress Head- atraumatic Eyes- EOMI. Neck- supple, no JVD. Lungs- clear to auscultation no wheezing or crackles Heart- regular rate and rhythm; no murmur, no gallop. Abdomen- normal bowel sounds, soft, nontender, no distension Extremities- no obvious edema, moves extremities Neuro- alert, oriented EOMI; no facial palsy; no dysarthria; moves extremities Principal Diagnosis Pneumothorax Discharge Exam General- WD/WN young F in NAD Head- atraumatic Eyes- EOMI. Neck- supple, no JVD. Lungs- clear to auscultation no wheezing or crackles, + chest tube removed Heart- regular rate and rhythm; no murmur, no gallop. Abdomen- normal bowel sounds, soft, nontender, no distension Extremities- no obvious edema, moves extremities. + clubbed fingertips/nails Neuro- alert, oriented EOMI; no facial palsy; no dysarthria; moves extremities Discharge Data Allergies Allergy/AdvReac Type Severity Reaction Status Date / Time No Known Allergies Allergy Unverified 10/05/15 12:41 Consultations 12/22/24 21:36 ED Decision to Admit Stat 12/23/24 08:00 Consult Pulmonology Routine Ordered Studies 12/22/24 16:43 CT chest diagnostic w con Stat IMPRESSION: 1. Moderate right pneumothorax, also with a right apical bulla and no CT features of tension. The critical findings protocol was activated at 6:05 PM EST on 12/22/2024. 2. Severe pulmonary emphysema and/or interstitial lung disease with mediastinal and hilar adenopathy. Please correlate with clinical history. 12/24/24 08:42 CT abdomen wo con Routine FINDINGS: Please note that the chest CT will be reported separately. No pneumatosis, free air or portal venous gas is present. No renal lesions are identified on this exam. Specifically, no fat-containing renal lesions are present. There is no hydronephrosis. There are no renal calculi. Unenhanced images of the liver, spleen, adrenal glands and pancreas are unremarkable. There is no abdominal lymphadenopathy. There are gallstones within the gallbladder. Caliber of visualized small and large bowel are normal. IMPRESSION: 1. No renal lesions identified on unenhanced exam. No renal angiomyolipomas. 2. Cholelithiasis. 12/24/24 08:45 CT chest HighRes diag wo con Routine FINDINGS: There are multiple mildly enlarged mediastinal lymph nodes. Index right lower paratracheal lymph node on image 23 of 60 measures 1.9 x 1.4 cm. These are unchanged. Mildly enlarged bilateral hilar lymph nodes are better depicted on prior contrast enhanced chest CT the size of the heart is normal. There is no pericardial effusion. Right pleural catheter is in place. The right pneumothorax has nearly completely resolved. There is trace residual right pleural gas anteriorly. There is no left pneumothorax. Linear subpleural densities within the lower lobes represent atelectasis. Note is again made of upper lobe predominant severe paraseptal/bullous emphysema. There is also upper lobe predominant architectural distortion and mild upper lobe predominant groundglass opacity. No confluent consolidation is present. Central airways are patent. There are no suspicious pulmonary nodules. There is no honeycombing. IMPRESSION: 1. Right pleural catheter in place. Near complete resolution of the right pneumothorax. Trace residual right pleural gas. 2. Redemonstration of severe upper lobe predominant bullous emphysema, architectural distortion and scattered groundglass opacities. No confluent consolidation. 3. Mildly enlarged mediastinal and bilateral hilar lymph nodes. Although nonspecific, these are probably related to interstitial lung disease. Hospital Course (1) Pneumothorax: 34-year-old female with past medical history significant for kidney stones, depression and anxiety presents with chest pain and shortness of breath and found to have a right pneumothorax and status post pigtail chest tube by ER. 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 She took ibuprofen and it seemed to help for some time. But the pain came back severely radiating to the back associated with shortness of breath which prompted her to come to the ER. Currently hemodynamically okay and saturating okay on 3 L. Denies any fevers. Denies any cough. No runny nose or sore throat. No headache. No nausea. No abdominal pain. Normal bowel and bladder movements. Patient states since last 2 to 3 months walking from her home to her workplace which is 4 minutes away she was huffing and puffing. And also climbing steps in her house making her short of breath. Patient also states about couple of weeks ago she inhaled some gases from the refrigerator at workplace and after that she had a cough with blood in the sputum, but it happened only once. Patient states she smokes about a 1 pack of cigarettes daily since last 20 years.Patient is somewhat tearful. Patient states her family lives about 45 minutes away. Pneumothorax Right side s/p pigtail chest tube by ER Also CT scan showing severe emphysema and /or ILD with mediastinal and hilar adenopathy Follow up CXR shows improved pneumothorax pt was admitted to telemetry Pulmonary medicine consulted and discussed with - chest tube now removed - high resolution CT chest obtained as above - Per pulm - Problem list: Secondary spontaneous pneumothorax on the right status post pigtail catheter 12/22/2024, removed 12/24/2024 Extensive emphysema, bullous emphysema Mediastinal adenopathy and hilar Interstitial fibrosis Tobacco use disorder Distant history of illicit substance use (smoked opioid pain pills, snorted cocaine) Differential diagnosis: Differential is broad, this could be lung disease secondary to her history of smoking opioids previously. Also snorted cocaine in the past. Alpha-1 antitrypsin deficiency is also high on the differential given her young age and extent of emphysema. Imaging does not appear as classic cystic lung disease as you would see in LAP or GALLARDO or an Mis[facility] S[facility] Dubay however these are also on the differential. Also would include pulmonary Langerhans' cell histiocytosis given her smoking history. Plan: I personally discussed this case with thoracic surgery at [facility]. We discussed the patient's clinical history and imaging findings. They recommended removing chest tube rather than pleurodesis as this would limit her ability to get lung transplant in the future. They recommend referral for ILD specialist in the outpatient setting (they recommend Dr. Yrn Corrales at [facility]). Chest tube was removed today. Chest x-ray stable after chest tube removal. I performed a high-resolution CT scan today. This showed almost complete re solution of pneumothorax with chest tube clamped. Redemonstration of the severe emphysematous changes, subpleural and paraseptal distribution predominantly in the upper lobes. Scattered GGO's appreciated without consolidation. Mediastinal and hilar adenopathy appreciated. CT of the abdomen did not show any renal abnormalities or evidence of angiomyolipomas. I have sent an extensive autoimmune workup including LANE, anti-DNA's, antimitochondrial, anti-Harini. Will also obtain a VEGF-D level. No evidence of angiomyolipomas in the kidneys. HIV is negative. LDH not elevated. Will also get an angiotensin-converting enzyme level. I will start her on Anoro inhaler for now. Fairly asymptomatic from a pulmonary standpoint. Tobacco cessation advised. Patient will likely need lung transplant in the future however she would not even be considered for this if she is smoking. I explained this in detail with her. She is very motivated to stop. I also spoke with her partner and he is going to try to quit with her. Discharge recommendations: Patient was instructed to avoid lifting (no more than 10 pounds 4 the next 2 weeks), no straining (avoid constipation), no flying, no scuba diving, no contact sports. Smoking cessation discussed in detail. Patient would like to have nicotine patches and nicotine gum prescribed to her. She is doing well with this. Patient will need to follow-up with me in clinic in approximately 2 weeks. At follow-up we will obtain PFTs and follow-up on send out labs. We will also consider referral for ILD specialist and possible lung biopsy. Please discharge home with Anoro inhaler or similar inhaler as well as albuterol as needed. Tobacco abuse counselling, nicotine patch Total Time Total Time Spent Total Time Spent (In Minutes): 40 Discharge Plan Discharge Items Patient Disposition: Home - Self-Care Reason For Visit: PNEUMOTHORAX Discharge Diagnosis: Pneumothorax Condition on Discharge: Fair Activity: As commented below Activity Comment: No flying or scuba diving. No contact sports. No heavy lifting/straining. Lifting: No more than 10 pounds Bathing: Keep incision dry Exercise/Sports: Wait until after follow-up appointment Non-emergency contact: Primary Care Provider, Specialist and Rag Collector Call non-emergency contact if: your symptoms worsen Follow-up/Referrals: Rebecca Morrissey MD [Primary Care Provider] - Erendira West MD [Physician] - 01/03/25 (Secondary spontaneous pneumothorax, ILD) Diet: Regular Addtl Attending Provider Instructions: Follow up with your primary care doctor and prop worker. You should be seen by primary care doctor within 1-2 weeks. Return to the ER immediately or call 911 if chest pain or shortness of breath resumes. Avoid heavy lifting or straining. (no more than 10 pounds for the next 2 weeks),(avoid constipation). No contact sports. No flying or scuba diving. Follow-up with pulmonology in approximately 10 to 14 days. The appointment was scheduled for you for 01/03/2025. No smoking. Pending Studies at Discharge: Yes Studies:: ILD work up blood work/autoimmune work up Stand-Alone Forms: [facility], Smoking Cessation Medications and DC Order Prescriptions: New umeclidinium-vilanterol [Anoro Ellipta] 62.5-25 mcg/actuation Blister With Device 1 inh inhalation DAILY Qty: 60 0RF nicotine 7 mg/24 hr Patch 24 Hour 1 patch transdermal QAM Qty: 14 0RF albuterol sulfate [Ventolin HFA] 90 mcg/actuation HFA aerosol inhaler 1 inh inhalation Q4H PRN (Reason: shortness of breath or wheezing) Qty: 8.5 0RF Continued buprenorphine-naloxone 8-2 mg tablet, sublingual 1 tab SUBLINGUAL BID naloxone 4 mg/actuation spray,non-aerosol 1 spray INTRANASAL UD PRN (Reason: Other) ibuprofen 0 mg PO UD PRN (Reason: Pain) Patient Comments: OTC unknown dose Discharge Orders: Discharge Order (Routine); Ordered 12/24/24 Ordered By: Te Crews Admission Data Admit Date/Time: 12/22/24 21:44 Attending Provider: Te Crews Admit Provider: Matthew Dawson Primary Care Provider: Rebecca Morrissey Other Providers: Matthew Dawson; Erendira West Other Interventions: Discharge Summary Assessment (RN) Last Done: 12/24/24 14:21
[2024-12-30 04:52] LABS: Scleroderma Ab <1.0 NEG AI (<1.0 NEGATIVE); Sm/RNP <1.0 NEG AI (<1.0 NEGATIVE)
[2024-12-31 08:22] LABS: Anti Mitochondrial Antibody NEGATIVE (NEGATIVE); Anti-DNASE B Ab <95 U/mL (<301)
== END 2024-12-24 14:00 | disposition home or self-care (01) | DRG 197 ==
LOC: ED 15:49 → INTOOBSV 21:44 → 2E 21:44